=== PATIENT | female | born 1945 | race Caucasian/White ===

== ENCOUNTER 2023-06-13 11:09 | Emergency (ER) | payer MEDICARE, OTHER, MEDICAID, SELFPAY ==
[2023-06-13 12:06] VITALS: BP 182/92; PULSE 64; RESP 16; TEMP 36.9; O2SAT 97; BMI 27.1
--- NOTE | 2023-06-13 12:12 | DI.RAD.S_ITS ---
PROCEDURE: XR HAND RT MIN 3V INDICATIONS: Hyperextension of right fingers with swelling TECHNIQUE: 3 views of the hand acquired. COMPARISON: None. FINDINGS: Bones: Subtle small ossifications are seen volar to the the 3rd and 4th middle phalangeal bases. Carpal bones are normally aligned. No suspicious bony lesions. Background arthritic changes are present. Soft tissues: Chondrocalcinosis is noted in the region of the triangular fibrocartilage. Soft tissue edema is seen in the region of the 3rd and 4th proximal interphalangeal joints. IMPRESSION: Suspected small minimally displaced fractures at volar bases of the 3rd and 4th middle phalanges. Approved by: Dawood Nassar M.D. on 06/13/2023 at 14:09
--- NOTE | 2023-06-13 13:46 | PC.NURSE ---
Patient with significant swelling to left ring finger with yellow color metal ring with red colored stone at base of finger. With patient's permission after education on the safety and integrity of finger being compromised by swelling and restriction of ring, ring was cut off and given back to patient in specimen cup with patient label on it.
--- NOTE | 2023-06-13 13:51 | DI.RAD.S_ITS ---
PROCEDURE: XR HAND RT MIN 3V INDICATIONS: injury TECHNIQUE: 3 views of the hand(s) acquired. COMPARISON: [facility], CR, XR HAND RT MIN 3V, 06/13/2023, 12:26. FINDINGS: Bones: No fractures or dislocations. Carpal bones are normally aligned. No suspicious bony lesions. Soft tissues: No suspicious soft tissue calcifications. IMPRESSION: No acute fracture. No osseous lesion. If symptoms and/or clinical suspicion for pathology persist, further assessment with repeat, or advanced imaging (e.g., CT, MRI, or bone scan) may be helpful for further assessment. Dictated by: Lamin Bowles M.D. on 06/13/2023 at 14:22 Approved by: Lamin Bowles M.D. on 06/13/2023 at 14:23
[2023-06-13 13:52] VITALS: BP 170/78; PULSE 65; RESP 18; O2SAT 98
[2023-06-13 15:05] VITALS: BP 173/81; PULSE 69; RESP 16; O2SAT 98
--- NOTE | 2023-06-20 11:15 | ED_ITS ---
HPI - Extremity Injury (Upper) <Rohit Werner PA-C - Last Filed: 06/20/23 11:20> General Chief Complaint: Extremity Injury, Upper Stated Complaint: right hand injury, swelling Time Seen by Provider: 06/13/23 12:25 Source: patient Mode of arrival: Ambulatory History of Present Illness HPI narrative: 77-year-old female with past medical history Parkinson's presents to the ED status post a finger injury sustained yesterday. Patient reports accidentally hyperextending her right ring and middle finger yesterday, following which there has been some significant swelling and pain of both fingers. Patient denies numbness, tingling, weakness. Related Data Allergies Allergy/AdvReac Type Severity Reaction Status Date / Time ciprofloxacin [From Cipro] Allergy Verified 06/13/23 12:11 Sulfa (Sulfonamide Allergy Verified 06/13/23 12:11 Antibiotics) Review of Systems <Rohit Werner PA-C - Last Filed: 06/20/23 11:20> Constitutional Constitutional: Denies chills, Denies fatigue, Denies fever(s), Denies frequent falls, Denies lethargy and Denies weakness Eyes Eyes: Denies change in vision, Denies eye discharge, Denies irritation and Denies loss of vision ENT Ears, Nose, Mouth, and Throat: Denies change in voice, Denies dizziness, Denies neck pain, Denies sore throat and Denies throat swelling Cardiovascular Cardiovascular: Denies chest pain, Denies irregular heart rhythm, Denies lightheadedness, Denies palpitations, Denies dyspnea, Denies dyspnea on exertion and Denies orthopnea Respiratory Respiratory: Denies cough, Denies dyspnea, Denies dyspnea on exertion and Denies wheezing Gastrointestinal Gastrointestinal: Denies abdominal pain, Denies change in bowel habits, Denies diarrhea, Denies nausea and Denies vomiting Musculoskeletal Musculoskeletal: Denies neck pain and Denies numbness Comments: Right ring and middle finger injury, swelling, pain Integumentary/Breasts Skin/Breast: Denies pruritus, Denies erythema, Denies rash and Denies wounds Neurologic Neurologic: Denies behavioral changes, Denies confusion, Denies dizziness, Denies frequent falls, Denies loss of vision, Denies numbness and Denies weakness Psychiatric Psychiatric: Denies anxiety, Denies behavioral changes, Denies confusion, Denies depression, Denies homicidal ideation and Denies suicidal ideation Endocrine Endocrine: Denies fatigue, Denies flushing and Denies palpitations Hematologic/Lymphatic Hematologic/Lymphatic: Denies easy bruising Allergic/Immunologic Allergic/Immunologic: Denies urticaria, Denies throat swelling and Denies wheezing Patient History <Rohit Werner PA-C - Last Filed: 06/20/23 11:20> Social History Smoking Status: Former smoker Smoking Status: Former smoker Substance Use Type: does not use Exam <Rohit Werner PA-C - Last Filed: 06/20/23 11:20> Narrative Exam Narrative: Const General:?cooperative, healthy appearing and comfortable HENMT Head:?normal to inspection Ears:?hearing grossly normal bilaterally Nose:?external nose normal Face and sinus:?normal facial exam and sinuses nontender Mouth:?oral mucosae normal Throat:?posterior oropharynx normal Eyes General:?appearance normal, both eyes and all related structures Neck Neck:?normal visual inspection and no lymphadenopathy noted Resp Effort & Inspection:?normal respiratory effort Auscultation:?clear to auscultation bilaterally Cardio Rate:?regular rate Rhythm:?regular rhythm Musculoskeletal Right ring finger and middle finger appears swollen and painful. The ring was cut to accommodate swelling and avoid neurovascular compromise. No bruising. Sensation intact. Range of motion limited by pain. Neuro General:?patient alert, patient awake and patient oriented x3 Initial Vital Signs Initial Vital Signs: Vital Signs Temperature 98.4 F 06/13/23 12:06 Pulse Rate 64 06/13/23 12:06 Respiratory Rate 16 06/13/23 12:06 Blood Pressure 182/92 H 06/13/23 12:06 Pulse Oximetry 97 06/13/23 12:06 Oxygen Delivery Method Room Air 06/13/23 12:06 <Elinor Lanza DO - Last Filed: 06/21/23 07:08> Initial Vital Signs Initial Vital Signs: Vital Signs Temperature 98.4 F 06/13/23 12:06 Pulse Rate 64 06/13/23 12:06 Respiratory Rate 16 06/13/23 12:06 Blood Pressure 182/92 H 06/13/23 12:06 Pulse Oximetry 97 06/13/23 12:06 Oxygen Delivery Method Room Air 06/13/23 12:06 MDM - Extremity Injury (Upper) <Rohit Werner PA-C - Last Filed: 06/20/23 11:20> [facility] Narrative Medical decision making narrative: 77-year-old female with past medical history Parkinson's presents to the ED status post a finger injury sustained yesterday. Concern for fracture/dislocation versus musculoskeletal sprain/strain versus other. X-ray was obtained after the ring was removed which showed no acute fractures or dislocations. Patient's symptoms most consistent with a musculoskeletal sprain/strain of the fingers. Recommend supportive care with Tylenol. ED return precautions discussed with patient. Patient verbalized understanding. Medical records reviewed: Yes Discharge Plan Departure Patient Disposition: Home Clinical Impression: Finger sprain Qualifiers: Encounter type: initial encounter Finger: ring finger Sprain of finger site: unspecified site Laterality: right Qualified Code(s): S63.614A - Unspecified sprain of right ring finger, initial encounter Instructions: DI for Finger Sprain Activity Restrictions/Additional Instructions: You were evaluated in the ED today for a finger injury. Your x-ray did not show any fractures or dislocations. It appears that your injury is from a musculoskeletal sprain/strain of the fingers. You may take Tylenol for pain. Please follow-up with your PCP as soon as possible. Return to the ED if you have worsening symptoms, numbness, tingling, weakness. Stand Alone Forms: Patient Portal/API ED Sign-out <Elinor Lanza DO - Last Filed: 06/21/23 07:08> Cosign ED Attending Rishabh Attestation: I was immediately available in the department for consultation.
== END 2023-06-13 15:05 | disposition home or self-care (01) ==
PROVIDERS: Emergency Provider Student in an Organized Health Care Education/Training Program
DX: S63.614A Unspecified sprain of right ring finger, initial encounter (principal); X58.XXXA Exposure to other specified factors, initial encounter
CPT/HCPCS: 73130; 99283

== ENCOUNTER → 2023-10-29 10:07 | Outpatient (CLI) | payer MEDICARE, OTHER, MEDICAID, SELFPAY ==
[2023-10-29 15:26] LABS: Appearance Urine UA CLEAR; Bilirubin Urine UA NEGATIVE (NEGATIVE); Color Urine UA YELLOW; Glucose Urine UA NEGATIVE (Negative); Ketones Urine UA NEGATIVE (NEGATIVE); Leukocyte Esterase Urine UA NEGATIVE (NEGATIVE); Nitrite Urine UA NEGATIVE (Negative); Occult Blood Urine UA NEGATIVE (Negative); Protein Urine UA NEGATIVE (Negative); Urobilinogen Urine UA 0.2 E.U./dL (0.2)
[2023-10-29 15:30] LABS: RBC Urine 0-1/HPF (0-5/HPF); Urine Volume 10mL (spun); WBC Urine 5-10/HPF (0-5/HPF)
[2023-10-29 15:31] LABS: Bacteria Urine Moderate (10-30); Culture Indicated Urine Specimen Cultured; Squamous Epithelial Cell Urine 5-10 /HPF (0-5/HPF)
== END ==
PROVIDERS: Referring Provider Internal Medicine; Visit Provider Internal Medicine
DX: R39.15 Urgency of urination (principal)
CPT/HCPCS: 81001; 87086

== ENCOUNTER → 2024-01-27 14:43 | Outpatient (ROUT) | payer MEDICARE, OTHER, MEDICAID, SELFPAY ==
[2024-01-27 14:52] LABS: Appearance Urine UA CLEAR; Bilirubin Urine UA NEGATIVE (NEGATIVE); Color Urine UA YELLOW; Glucose Urine UA NEGATIVE (Negative); Ketones Urine UA TRACE (NEGATIVE); Leukocyte Esterase Urine UA NEGATIVE (NEGATIVE); Nitrite Urine UA NEGATIVE (Negative); Occult Blood Urine UA NEGATIVE (Negative); Protein Urine UA NEGATIVE (Negative); Specific Gravity Urine UA 1.025 (1.000-1.035); Urobilinogen Urine UA 0.2 E.U./dL (0.2)
[2024-01-27 14:59] LABS: Bacteria Urine Many (>30); Culture Indicated Urine Cult Not Indicated; RBC Urine 0-1/HPF (0-5/HPF); Squamous Epithelial Cell Urine 10-30 /HPF (0-5/HPF); Urine Volume 10mL (spun); WBC Urine 1-5/HPF (0-5/HPF)
== END ==
PROVIDERS: Visit Provider Nurse Practitioner Family
DX: R35.0 Frequency of micturition (principal)
CPT/HCPCS: 81001

== ENCOUNTER → 2024-02-01 06:22 | Outpatient (ROUT) | payer MEDICARE, OTHER, MEDICAID, SELFPAY ==
[2024-02-01 08:03] LABS: Add Manual Diff / Slide Review NO; Basophils Absolute Auto 0 /uL (0-100); Basophils Percent Auto 0.6 % (0-2); Eosinophils Absolute Auto 200 /uL (0-450); Eosinophils Percent Auto 2.7 % (2-4); Hematocrit 38.4 % (36-46); Hemoglobin 13.1 g/dL (12.0-16.0); Lymphocytes Absolute Auto 1200 /uL (1100-4500); Lymphocytes Percent Auto 20.6 % (25-40); Mean Corpuscular Hemoglobin 30.3 PG (26-34); Mean Corpuscular Volume 89.1 fL (80-100); Monocytes Absolute Auto 500 /uL (0-900); Neutrophils Absolute Auto 3800 /uL (1500-7000); Neutrophils Percent Auto 67.1 % (50-75); Platelet Count 218 X10^3/uL (150-400); Red Blood Cell Count 4.31 X10^6/uL (4.0-5.2); Red Cell Distribution Width 13.8 % (11.6-14.8); White Blood Cell Count 5.6 X10^3/uL (4.5-11.0)
[2024-02-01 08:22] LABS: Albumin 3.7 g/dL (3.5-5.0); Albumin Globulin Ratio 1.3 (1.0-2.8); Alkaline Phosphatase 89 U/L (38-126); Aspartate Aminotransferase 19 IU/L (14-36); BUN Creatinine Ratio 28.3 (6-22); Bilirubin Total 0.8 mg/dL (0.2-1.3); Blood Urea Nitrogen 36 mg/dL (7-17); Calcium 9.3 mg/dL (8.4-10.2); Carbon Dioxide 24 mmol/L (22-32); Chloride 106 mmol/L (98-107); Estimated Glomerular Filt Rate 44 mL/min (>60); Globulin 2.8 g/dL (1.7-4.1); Glucose 93 mg/dL (80-110); HEMOLYSIS < 15 (0-50); Sodium 136 mmol/L (137-145); Total Protein 6.5 g/dL (6.3-8.2)
[2024-02-01 08:23] LABS: Alanine Aminotransferase < 4 IU/L (<35)
== END ==
PROVIDERS: Visit Provider Nurse Practitioner Family
DX: N18.4 Chronic kidney disease, stage 4 (severe) (principal); R29.6 Repeated falls; G20.B2 Parkinson's disease with dyskinesia, with fluctuations
CPT/HCPCS: 36415; 80053; 85025

== ENCOUNTER → 2024-05-03 06:08 | Outpatient (ROUT) | payer MEDICARE, OTHER, MEDICAID, SELFPAY ==
[2024-05-03 07:22] LABS: BUN Creatinine Ratio 18.1 (6-22); Blood Urea Nitrogen 28 mg/dL (7-17); Calcium 9.5 mg/dL (8.4-10.2); Carbon Dioxide 26 mmol/L (22-32); Chloride 106 mmol/L (98-107); Estimated Glomerular Filt Rate 34 mL/min (>60); Glucose 95 mg/dL (80-110); HEMOLYSIS < 15 (0-50); Sodium 138 mmol/L (137-145)
== END ==
PROVIDERS: Visit Provider Nurse Practitioner Family
DX: N18.9 Chronic kidney disease, unspecified (principal)
CPT/HCPCS: 36415; 80048

== ENCOUNTER 2025-01-31 18:30 | Inpatient (IN) | payer MEDICARE, OTHER, MEDICAID, SELFPAY ==
[2024-12-29 14:37] VITALS: BMI 29.7
--- NOTE | 2025-01-31 | DI.CT.S_ITS ---
PROCEDURE: CT PEL WO CON INDICATIONS: Right hip fracture TECHNIQUE: Noncontrast 3 mm axial sections acquired through the bony pelvis, with coronal and sagittal reformatting. COMPARISON: [facility], CR, XR PELVIS WITH LATERAL HIP LEFT, 04/05/2023, 13:31. [facility], CR, XR HIP W PEL RT 2V, 01/31/2025, 19:07. FINDINGS: Image quality: Excellent. Bones: Prior pinning of the left hip. Cortical step-off at the right femoral neck. Associated sclerosis due to impaction. No significant displacement. No dislocation. No suspicious osseous lesion Soft tissues: No large hematoma. Diverticulosis. Normal appendix. No free fluid in the pelvis. IMPRESSION: 1. Nondisplaced right hip fracture. 2. No significant hematoma. 3. Prior left hip pinning. Dictated by: Jon Guy M.D. on 02/01/2025 at 0:21 Approved by: Jon Guy M.D. on 02/01/2025 at 0:25
[2025-01-31 18:48] VITALS: BP 165/74; PULSE 65; RESP 16; TEMP 36.9; O2SAT 95; BMI 27.4
--- NOTE | 2025-01-31 18:53 | DI.RAD.S_ITS ---
PROCEDURE: XR HIP W PEL IF DONE RT 2V INDICATIONS: fall/pain TECHNIQUE: AP pelvis with lateral view(s) of the right hip(s). COMPARISON: None. FINDINGS: Bones: Osteopenia. Subtle cortical irregularity and linear lucency through the subcapital proximal femur is suspicious for a nondisplaced fracture. The pelvic ring appears intact. The sacrum is obscured by bowel gas. Left proximal femoral fixation is noted. Mild degenerative changes of the bilateral hip joints and visualized lower lumbar spine. Soft tissues: The visualized bowel gas pattern is normal. No suspicious soft tissue calcifications. IMPRESSION: Subtle cortical irregularity and linear lucency through the subcapital proximal femur is suspicious for a nondisplaced fracture. Recommend further evaluation with cross-sectional imaging. Dictated by: Esau Camargo M.D. on 01/31/2025 at 19:56 Approved by: Esau Camargo M.D. on 01/31/2025 at 20:00
[2025-01-31 23:30] VITALS: BP 183/84; PULSE 77; RESP 16
--- NOTE | 2025-01-31 23:53 | ED_ITS ---
HPI - Fall General Chief Complaint: Fall Stated Complaint: fall, rt hip pain no thinners Time Seen by Provider: 01/31/25 22:27 Source: patient and other Mode of arrival: Wheelchair History of Present Illness HPI Narrative: 79-year-old female patient with a history of CVA, Parkinson's disease and hypertension who fell earlier today and injured her right hip. She has trouble bearing weight and causes pain in the right hip and groin area. No other injury. Related Data Home Medications ?Medication ?Instructions ?Recorded ?Confirmed amantadine HCl 137 mg 274 mg PO BEDTIME 12/29/24 1 capsule,extended release 24 hr (Gocovri) amlodipine 10 mg tablet 10 mg PO DAILY 12/29/2407/24 carbidopa 25 mg-levodopa 100 mg 0.5 tab PO 5XD 5 02/01/25 tablet carvedilol 12.5 mg tablet 12.5 mg PO BID 12/29/2407/24 Allergies Allergy/AdvReac Type Severity Reaction Status Date / Time ciprofloxacin (From Cipro) Allergy Verified 12/29/24 11:34 furosemide Allergy Verified 01/31/25 18:49 Sulfa (Sulfonamide Allergy Verified 12/29/24 11:34 Antibiotics) sulfadiazine Allergy Verified 01/31/25 18:49 Review of Systems Review of Systems ROS Unobtainable: All systems reviewed & are unremarkable except as noted in HPI and below Musculoskeletal Musculoskeletal: Reports as per HPI Patient History Medical History HTN (hypertension) Transient cerebral ischemia Parkinson's disease Surgical History S/P deep brain stimulator placement Social History household members: none housing: assisted living facility Smoking Status: Never smoker Smoking Status: Never smoker Exam Narrative Exam Narrative: General: Alert and conversant. Mild distress. Appears well nourished and well hydrated Craniofacial: No evidence of trauma. Nontender and no swelling. Eyes: PERRLA EOMI conjunctiva clear HEENT: Oropharynx clear with no swelling, exudate or asymmetry of the pharynx. Nares clear. No sinus tenderness Neck: No tenderness or adenopathy. No meningismus. No JVD Lungs: Clear to auscultation with good air movement. No wheezing, rales or rhonchi. No respiratory distress Cardiac: Regular rate and rhythm with no appreciable murmur or gallop Abdomen: Soft, nontender with no distention or masses. Normal bowel sounds. No rebound or guarding Musculoskeletal: Right hip tenderness to palpation and gentle range of motion. No deformity. Otherwise Exam of the extremities, axial spine and ribcage reveals no deformity, bony tenderness or swelling. Range of motion intact Neuro: Alert and conversant. Cranial nerves, motor, sensory and cerebellar all grossly intact. No focal deficit Skin: Warm and normal color. No rashes Psychological: Normal affect and interaction. No evidence of delusion or psychosis. Normal mood. Initial Vital Signs Initial Vital Signs: Vital Signs Temperature 98.4 F 01/31/25 18:48 Pulse Rate 65 01/31/25 18:48 Respiratory Rate 16 01/31/25 18:48 Blood Pressure 165/74 H 01/31/25 18:48 Pulse Oximetry 95 01/31/25 18:48 Oxygen Delivery Method Room Air 01/31/25 18:48 Course Course Course Narrative: 23:15 Patient had been out in the waiting room a long time on her 1st arrival and was taken back to the SNF or assisted living. We were able to have her come back for assessment. 23:45 I discussed the patient's care with Dr. Barnes, orthopedics who will consult on the patient for surgical repair of right proximal femur fracture. He would like the patient admitted to hospitalist. 00:30 I discussed the patient's care with Alex hospitalist, who agrees to admit her with ortho consulting. Orders Ordered: ED Orders 02/01/25 00:05 CBC Auto Diff [Complete Blood Count AUTO DIFF] Stat CMP [Comprehensive Metabolic Panel] Stat Discontinued Medications Carbidopa/Levodopa (Carbidopa-Levodopa 25/100 Tablet) 1 each PO NOW ONE Stop: 02/01/25 01:41 Last Admin: 02/01/25 01:47 Dose: 0.5 each Documented By: KATIE Ketorolac Tromethamine (Ketorolac 30 Mg/Ml Vial) 15 mg IV NOW ONE Stop: 02/01/25 00:17 Last Admin: 02/01/25 00:35 Dose: 15 mg Documented By: ROSIE Morphine Sulfate (Morphine 4 Mg/Ml Inj) 4 mg IV NOW ONE Stop: 02/01/25 00:17 Last Admin: 02/01/25 00:36 Dose: 4 mg Documented By: ROSIE Vital Signs Vital signs: Vital Signs - 8 hr 01/31/25 23:30 02/01/25 00:00 02/01/25 00:30 Pulse Rate 77 75 Respiratory Rate 16 18 Blood Pressure 183/84 H 184/85 H 191/84 H Pulse Oximetry 92 Oxygen Delivery Method Room Air MDM - Fall Lab Data Attestation: I reviewed the patient's lab results. 02/01/25 00:05 02/01/25 00:05 Labs: Lab Results 02/01/25 Range/Units 00:05 WBC 12.0 H (4.5-11.0) X10^3/uL RBC 4.45 (4.0-5.2) X10^6/uL Hgb 13.2 (12.0-16.0) g/dL Hct 39.3 (36-46) % MCV 88.2 (80-100) fL MCH 29.6 (26-34) PG MCHC 33.6 (30-36) % RDW 14.4 (11.6-14.8) % Plt Count 196 (150-400) X10^3/uL Neut % (Auto) 82.7 H (50-75) % Lymph % (Auto) 8.4 L (25-40) % Pershing % (Auto) 7.6 (3-14) % Eos % (Auto) 0.9 L (2-4) % Baso % (Auto) 0.4 (0-2) % Neut # (Auto) 9900 H (1676-4644) /uL Lymph # (Auto) 1000 L (2440-8824) /uL Pershing # (Auto) 900 (0-900) /uL Eos # (Auto) 100 (0-450) /uL Baso # (Auto) 100 (0-100) /uL Sodium 138 (137-145) mmol/L Potassium 3.9 (3.4-5.1) mmol/L Chloride 105 (98-107) mmol/L Carbon Dioxide 21 L (22-32) mmol/L BUN 35 H (7-17) mg/dL Creatinine 1.50 H (0.52-1.04) mg/dL Estimated GFR 35 L (>60) mL/min BUN/Creatinine Ratio 23.3 H (6-22) Glucose 113 H (70-99) mg/dL Calcium 9.6 (8.4-10.2) mg/dL Total Bilirubin 0.6 (0.2-1.3) mg/dL AST 29 (14-36) IU/L ALT 8 (<35) IU/L Alkaline Phosphatase 112 (38-126) U/L Total Protein 7.5 (6.3-8.2) g/dL Albumin 4.4 (3.5-5.0) g/dL Globulin 3.1 (1.7-4.1) g/dL Albumin/Globulin Ratio 1.4 (1.0-2.8) Imaging Data Right hip radiographs: Attestation: I personally reviewed and interpreted this imaging study as follows: My Impression: Possible nondisplaced right femoral neck fracture CT pelvis: Radiologist's Impression: IMPRESSION: 1. Nondisplaced right hip fracture. 2. No significant hematoma. 3. Prior left hip pinning. [facility] Narrative Medical decision making narrative: Patient had a fall with an isolated nondisplaced right femoral neck fracture which will need surgery. Patient's care was discussed with both orthopedics and hospitalist. Patient is admitted to hospitalist with ortho consultation for surgery in the morning. Otherwise stable on her chronic medical problems including Parkinson's Discharge Plan Departure Patient Disposition: Admitted As Inpatient Clinical Impression: Closed fracture of neck of right femur Admit Date/Time: 02/01/25 00:31 Admit Provider: Chad Eng
[2025-02-01] VITALS (38 sets, daily range): BP systolic 150–191; BP diastolic 65–121; PULSE 68–87; RESP 13–18; TEMP 35.9–36.9; O2SAT 15–98; BMI 28.2
--- NOTE | 2025-02-01 | DI.RAD.S_ITS ---
PROCEDURE: XR HIP W PEL IF DONE RT 2V INDICATIONS: RT HIP SURGERY TECHNIQUE: 2 intraoperative views of the hip were acquired. COMPARISON: [facility], CR, XR HIP W PEL RT 2V, 02/01/2025, 18:16. [facility], CR, XR HIP W PEL RT 2V, 01/31/2025, 19:07. FINDINGS: 3 screws transversing the right femoral neck fracture. Screws project in the expected location. IMPRESSION: Intraoperative guidance provided. Dictated by: Jon Guy M.D. on 02/01/2025 at 20:28 Approved by: Jon Guy M.D. on 02/01/2025 at 20:29
--- NOTE | 2025-02-01 | DI.RAD.S_ITS ---
PROCEDURE: XR HIP W PEL IF DONE RT 2V INDICATIONS: POST OP TECHNIQUE: AP pelvis with lateral view(s) of the right hip(s). COMPARISON: [facility], CR, XR HIP W PEL RT 2V, 02/01/2025, 17:53. [facility], CR, XR HIP W PEL RT 2V, 01/31/2025, 19:07. FINDINGS: Bones: Fixation screws in the bilateral femoral necks, more recently placed on the right. No evidence of hardware complication.. Pelvic ring appears intact. No suspicious bony lesions. Soft tissues: The visualized bowel gas pattern is normal. No suspicious soft tissue calcifications. IMPRESSION: Interval placement of right femoral neck fixation screws without evidence of hardware complication. Dictated by: Dayne Mark M.D. on 02/01/2025 at 19:39 Approved by: Dayne Mark M.D. on 02/01/2025 at 19:40
[2025-02-01] MEDS: KETOROLAC 30 MG/ML VIAL 15 MG IV (00:35)
[2025-02-01] MEDS: MORPHINE 4 MG/ML INJ IV (00:36)
[2025-02-01 00:39] LABS: Add Manual Diff / Slide Review NO; Hematocrit 39.3 % (36-46); Hemoglobin 13.2 g/dL (12.0-16.0); Lymphocytes Absolute Auto 1000 /uL (1100-4500); Mean Corpuscular HGB Conc 33.6 % (30-36); Mean Corpuscular Hemoglobin 29.6 PG (26-34); Mean Corpuscular Volume 88.2 fL (80-100); Platelet Count 196 X10^3/uL (150-400)
[2025-02-01 00:49] LABS: Alanine Aminotransferase 8 IU/L (<35); Albumin 4.4 g/dL (3.5-5.0); Albumin Globulin Ratio 1.4 (1.0-2.8); Alkaline Phosphatase 112 U/L (38-126); Blood Urea Nitrogen 35 mg/dL (7-17); Calcium 9.6 mg/dL (8.4-10.2); Carbon Dioxide 21 mmol/L (22-32); Chloride 105 mmol/L (98-107); Estimated Glomerular Filt Rate 35 mL/min (>60); Globulin 3.1 g/dL (1.7-4.1); Glucose 113 mg/dL (70-99); HEMOLYSIS 20 (0-50); Potassium 3.9 mmol/L (3.4-5.1); Sodium 138 mmol/L (137-145); Total Protein 7.5 g/dL (6.3-8.2)
[2025-02-01] MEDS: CARBIDOPA-LEVODOPA 25/100 TABLET 1 EACH PO (01:47)
--- NOTE | 2025-02-01 05:47 | PM.HP.1 ---
History of Present Illness History of Present Illness Date Patient Seen: 02/01/25 Time Patient Seen: 04:00 Chief complaint: fall, rt hip pain no thinners Narrative: 79 y/o resident of [facility] and PMH of Parkinson's disease with recurrent falls, presented with subcapital right femoral neck fracture. She was recently hospitalized in [place] for suspected stroke that turned out to be TIA. Today she did not sustain additional injuries with GLF. Complains on right hip pain. [facility] Medical History (Updated 02/01/25 @ 05:58 by Chad Johnson MD) HTN (hypertension) Transient cerebral ischemia Parkinson's disease Surgical History S/P deep brain stimulator placement Social History household members: none housing: assisted living facility Smoking Status: Never smoker Meds Home Medications and Allergies Home Medications ?Medication ?Instructions ?Recorded ?Confirmed ?Type amantadine HCl 137 mg 274 mg PO BEDTIME 12/29/24 02/01/25 History capsule,extended release 24 hr (Gocovri) amlodipine 10 mg tablet 10 mg PO DAILY 12/29/24 02/01/25 History carbidopa 25 mg-levodopa 100 mg 0.5 tab PO 5XD 12/29/24 02/01/25 History tablet carvedilol 12.5 mg tablet 12.5 mg PO BID 12/29/24 02/01/25 History Allergies Allergy/AdvReac Type Severity Reaction Status Date / Time ciprofloxacin (From Cipro) Allergy Verified 12/29/24 11:34 furosemide Allergy Verified 01/31/25 18:49 Sulfa (Sulfonamide Allergy Verified 12/29/24 11:34 Antibiotics) sulfadiazine Allergy Verified 01/31/25 18:49 Review of Systems Review of Systems Narrative: MSK - right groin pain CVS - w/o chest pain RS - w/o shortness of breath Neuro - loss of balance, unsteady gait Exam Vital Signs (past 8 hours): - 01/31/25 23:30 02/01/25 00:00 02/01/25 00:30 Pulse Rate 77 75 Respiratory Rate 16 18 Blood Pressure 183/84 H 184/85 H 191/84 H Pulse Oximetry 92 Oxygen Delivery Method Room Air 02/01/25 01:00 02/01/25 01:30 02/01/25 03:00 Pulse Rate 74 75 Respiratory Rate 17 16 Blood Pressure 165/70 H 150/67 H Pulse Oximetry 96 93 Oxygen Delivery Method Room Air Room Air Room Air Oxygen Delivery Method Room Air Narrative Exam Narrative: General - in no distress HEENT - atraumatic MSK - Rt groin and hip tender Neuro - bradykinetic, w/o tremor, has deep brain stimulator, Rt medial gaze palsy, dysarthria,normal mood and affect CVS - RRR RS - normal rtespiratory effort Objective Imaging CT Pelvis: Radiologist's impression: . Nondisplaced right hip fracture. 2. No significant hematoma. 3. Prior left hip pinning. Xray hip: Radiologist's impression: Subtle cortical irregularity and linear lucency through the subcapital proximal femur is suspicious for a nondisplaced fracture. Recommend further evaluation with cross-sectional imaging. Labs 02/01/25 00:05 02/01/25 00:05 Labs: Laboratory Results - last 24 hr 02/01/25 00:05 WBC 12.0 H RBC 4.45 Hgb 13.2 Hct 39.3 MCV 88.2 MCH 29.6 MCHC 33.6 RDW 14.4 Plt Count 196 Neut % (Auto) 82.7 H Lymph % (Auto) 8.4 L [place] % (Auto) 7.6 Eos % (Auto) 0.9 L Baso % (Auto) 0.4 Neut # (Auto) 9900 H Lymph # (Auto) 1000 L [place] # (Auto) 900 Eos # (Auto) 100 Baso # (Auto) 100 Sodium 138 Potassium 3.9 Chloride 105 Carbon Dioxide 21 L BUN 35 H Creatinine 1.50 H Estimated GFR 35 L BUN/Creatinine Ratio 23.3 H Glucose 113 H Calcium 9.6 Total Bilirubin 0.6 AST 29 ALT 8 Alkaline Phosphatase 112 Total Protein 7.5 Albumin 4.4 Globulin 3.1 Albumin/Globulin Ratio 1.4 Assessment & Plan Assessment and plan (1) Closed fracture of neck of right femur: Status: Acute (2) Parkinson's disease: Qualifiers: Dyskinesia presence: without dyskinesia Fluctuating manifestations: with fluctuating manifestations Qualified Code(s): G20.A2 - Parkinson's disease without dyskinesia, with fluctuations Status: Acute (3) Left bundle branch block (LBBB) determined by electrocardiography: Status: Acute (4) HTN (hypertension): Status: Acute Assessment & Plan narrative: Rt femoral neck fracture - NPO - IVFs - pain management - orthopedic surgery will operate Parkinson's disease - deep brain stimulator - Sinemet - amantadine - recurrent falls HTN - Coreg 12.5 mg bid - Norvasc 1o mg daily DVT prophylaxis - SCDs Patient consented to telemedicine, two-way, audio-visual encounter with RN assisting with exam. Patient located at [facility], provider located in [place]. Time-Based Coding :: [TOTAL MINUTES] spent with patient and on the chart (including review of chart, obtaining history, exam, reviewing outside data, placing orders, documenting exam and treatment plan, and counseling patient) on [DATE]. Quality VTE Deep Vein Thrombosis/Pulmonary Embolism Present on Admission: No
[2025-02-01] MEDS: LACTATED RINGERS 1,000 ML 100 ML IV ×2 (06:05→20:20)
[2025-02-01 06:19] LABS: MRSA (Nasal) PCR NOT DETECTED (Not Detect)
--- NOTE | 2025-02-01 06:44 | PC.ADMIT ---
[address] Admission Note: The patient,Nava Barroso,79 y/o, was given written information regarding hospital policies, unit procedures and contact persons. Patient's smoking status: Never smoker. Vital Signs - 8 hr 01/31/25 23:30 02/01/25 00:00 02/01/25 00:30 Temperature Pulse Rate 77 75 Respiratory Rate 16 18 Blood Pressure 183/84 H 184/85 H 191/84 H Pulse Oximetry 92 Oxygen Delivery Method Room Air Oxygen Flow Rate 02/01/25 01:00 02/01/25 01:30 02/01/25 02:10 Temperature 97.8 F Pulse Rate 74 75 69 Respiratory Rate 17 16 18 Blood Pressure 165/70 H 150/67 H 156/70 H Pulse Oximetry 96 93 92 Oxygen Delivery Method Room Air Room Air Oxygen Flow Rate 0 02/01/25 03:00 Temperature Pulse Rate Respiratory Rate Blood Pressure Pulse Oximetry Oxygen Delivery Method Room Air Oxygen Flow Rate Patient admitted to ICU room 229. A/O, but has impaired speech r/t previous CVA and Parkinsons. Has pain while turning and changing from street clothes to gown, denies pain once at rest. Decline Dunn catheter, but agreeable to Purewick. NPO, IVF started.
[2025-02-01 07:43] LABS: Hematocrit 39.5 % (36-46); Hemoglobin 13.2 g/dL (12.0-16.0); Mean Corpuscular HGB Conc 33.4 % (30-36); Mean Corpuscular Hemoglobin 29.6 PG (26-34); Mean Corpuscular Volume 88.6 fL (80-100); Platelet Count 172 X10^3/uL (150-400)
[2025-02-01 07:53] LABS: Blood Urea Nitrogen 32 mg/dL (7-17); Calcium 9.3 mg/dL (8.4-10.2); Carbon Dioxide 24 mmol/L (22-32); Chloride 103 mmol/L (98-107); Estimated Glomerular Filt Rate 37 mL/min (>60); Glucose 110 mg/dL (70-99); HEMOLYSIS < 15 (0-50); Potassium 4.1 mmol/L (3.4-5.1); Sodium 136 mmol/L (137-145)
--- NOTE | 2025-02-01 08:01 | PM.HP.1 ---
History of Present Illness History of Present Illness Date Patient Seen: 02/01/25 Chief complaint: fall, rt hip pain no thinners Narrative: Summary: 79 y/o resident of [facility] and H of Parkinson's disease with recurrent falls, presented with subcapital right femoral neck fracture. She was recently hospitalized in [place] for suspected stroke that turned out to be TIA. Today she did not sustain additional injuries with GLF. Complains on right hip pain. S: She was having a lot of right hip pain. She also feels stiff and feels like she was in withdrawal from her Sinemet. She denies any nausea. She was scheduled for operative repair today. O: VSS. Moderate distress, alert and oriented. Very surgeon difficult to understand speech. Masked facies. Lungs are clear, normal rate and effort. Heart is regular, no murmur gallop or rub. Abdomen is soft, non distended. Extremities are free of edema. Review of systems is difficult to obtain with her language intelligibility. IMAGING: CT Pelvis: Radiologist's impression: . Nondisplaced right hip fracture. 2. No significant hematoma. 3. Prior left hip pinning. Xray hip: Radiologist's impression: Subtle cortical irregularity and linear lucency through the subcapital proximal femur is suspicious for a nondisplaced fracture. Recommend further evaluation with cross-sectional imaging. A/P: 1. Right femoral neck fracture, active. 2. Parkinson's diisease, stable. 3. HTN, stable. PLAN: -IV fluids, NPO, pain medication. -ortho consultation for operative repair. -continue Sinemet as soon as possible. [facility] Medical History HTN (hypertension) Transient cerebral ischemia Parkinson's disease Surgical History S/P deep brain stimulator placement Social History household members: none housing: assisted living facility Smoking Status: Never smoker Meds Home Medications and Allergies Home Medications ?Medication ?Instructions ?Recorded ?Confirmed ?Type amantadine HCl 137 mg 274 mg PO BEDTIME 12/29/24 02/01/25 History capsule,extended release 24 hr (Gocovri) amlodipine 10 mg tablet 10 mg PO DAILY 12/29/24 02/01/25 History carbidopa 25 mg-levodopa 100 mg 0.5 tab PO 5XD 12/29/24 02/01/25 History tablet carvedilol 12.5 mg tablet 12.5 mg PO BID 12/29/24 02/01/25 History Allergies Allergy/AdvReac Type Severity Reaction Status Date / Time ciprofloxacin (From Cipro) Allergy Verified 12/29/24 11:34 furosemide Allergy Verified 01/31/25 18:49 Sulfa (Sulfonamide Allergy Verified 12/29/24 11:34 Antibiotics) sulfadiazine Allergy Verified 01/31/25 18:49 Exam Vital Signs (past 8 hours): - 02/01/25 00:30 02/01/25 01:00 02/01/25 01:30 Temperature Pulse Rate 75 74 75 Respiratory Rate 18 17 16 Blood Pressure 191/84 H 165/70 H 150/67 H Pulse Oximetry 92 96 93 Oxygen Delivery Method Room Air Room Air Room Air Oxygen Flow Rate 02/01/25 02:10 02/01/25 03:00 02/01/25 06:00 Temperature 97.8 F 96.7 F L Pulse Rate 69 68 Respiratory Rate 18 18 Blood Pressure 156/70 H 160/70 H Pulse Oximetry 92 98 Oxygen Delivery Method Room Air Oxygen Flow Rate 0 0 Oxygen Delivery Method Room Air Oxygen Flow Rate 0 Objective Labs 02/01/25 07:32 02/01/25 07:32 Labs: Laboratory Results - last 24 hr 02/01/25 02/01/25 02/01/25 00:05 03:10 07:32 WBC 12.0 H 7.3 RBC 4.45 4.46 Hgb 13.2 13.2 Hct 39.3 39.5 MCV 88.2 88.6 MCH 29.6 29.6 MCHC 33.6 33.4 RDW 14.4 14.4 Plt Count 196 172 Neut % (Auto) 82.7 H Lymph % (Auto) 8.4 L [place] % (Auto) 7.6 Eos % (Auto) 0.9 L Baso % (Auto) 0.4 Neut # (Auto) 9900 H Lymph # (Auto) 1000 L [place] # (Auto) 900 Eos # (Auto) 100 Baso # (Auto) 100 Sodium 138 136 L Potassium 3.9 4.1 Chloride 105 103 Carbon Dioxide 21 L 24 BUN 35 H 32 H Creatinine 1.50 H 1.46 H Estimated GFR 35 L 37 L BUN/Creatinine Ratio 23.3 H 21.9 Glucose 113 H 110 H Calcium 9.6 9.3 Total Bilirubin 0.6 AST 29 ALT 8 Alkaline Phosphatase 112 Total Protein 7.5 Albumin 4.4 Globulin 3.1 Albumin/Globulin Ratio 1.4 Nasal Screen MRSA (PCR) Not detected Assessment & Plan Time-Based Coding :: 35 min spent with patient and on the chart (including review of chart, obtaining history, exam, reviewing outside data, placing orders, documenting exam and treatment plan, and counseling patient) on 02/01. Quality VTE Deep Vein Thrombosis/Pulmonary Embolism Present on Admission: No MIPS - Admit I confirm the patient?s Advance Care Plan is present, Code status is documented, Surrogate decision maker is in patient?s record [If Yes, STOP here]: Yes MIPS - Meds 'Current medications' to include all prescriptions, [id number] products, herbals, cannabis/cannabidiol products, and vitamin/mineral/dietary (nutritional) supplements. I have utilized all available resources to obtain, update, or review the patient?s current medications. [If Yes, STOP here]: Yes
[2025-02-01] MEDS: CARBIDOPA-LEVODOPA 25/100 TABLET 0.5 EACH PO ×3 (12:10→21:30)
[2025-02-01] MEDS: ACETAMINOPHEN 325 MG TABLET 650 MG PO ×2 (13:02→21:32)
[2025-02-01] MEDS: LACTATED RINGERS 1,000 ML 42 ML IV ×2 (13:12→16:02)
--- NOTE | 2025-02-01 13:38 | CM.DANOTE ---
Initial DCP Assessment Note Pt is a 79 yo female, resident at [facility] in [place], hx of Parkinson's Disease with deep brain stiumulator, arrives after a fall at her facility with subsequent hip fracture, awaiting Ortho consult. Likely need for surgical repair. Reviewed chart, attempted assessment with patient; patient unable to verbalize effectively, slurred speech. Placed call to daughter on chart, Dorina P [phone] who reports she is sick, but her brother and patient's joint DPOA Spencer is coming from [place] today P [phone]. Dorina reports patient has been living at [facility] for approx 2 years. Patient is A+Ox4, had not been needing assist with all ADLs until recently when her deep brain stimulator had run out of battery life, , and sent patient into an almost catatonic state. Patient was sent to then transferred to [facility]; daughter reports she went to numerous hospitals before they found out patient's sx were all related to the stimulator shutting off due to low battery. Patient has a air brush decorator in her room that she lays on in order for the stimulator to charge correctly. Discussed anticipated surgery and likely need for SNF. Daughter would like a referral sent to [facility], patient had been there for months in the past after another surgical repair. Patient/family do not want [facility]. Placed call to [facility] P [phone], spoke with Lissette in admissions. Clinical referral faxed to [phone] attn Lissette. If this does not end up going through, pls email to : [email or web address]. PASRR completed in anticipation of SNF. Social work team will plan to follow clinical course closely. NATALIE Wu Discharge Planning/Care Management CM Discharge Assessment Start: 02/01/25 02:34 Freq: Status: Active Protocol: Document 02/01/25 13:35 FRANKIE (Rec: 02/01/25 13:38 FRANKIE [id number]) Discharge Planning Assessment Assigned Discharge NATALIE Gordon Weigher Bulker Provider Dante Francois Insurance Comment MCR/Ha/NILE DPOA/Assigned Dorina Simmons, daughter/DPOA P [phone] Designee Name Contact Information Spencer Barroso, son/joint DPOA P [phone] Advance Directives? Yes Advance Directives Yes on File History Provided By Family Member,Medical Record Has Patient been No admitted in last 30 days? Prior Living Assisted Living Arrangements Household Members none Facility Name [facility] Admitted From: Willing to Return to Yes Facility? Independent with ADL No 's Is patient alert and Yes oriented? Comment All ADLs currently
--- NOTE | 2025-02-01 16:38 | PM.CN.IH.1 ---
History of Present Illness Consult details Chief complaint: fall, rt hip pain no thinners Narrative: CHIEF COMPLAINT - Nondisplaced fracture of the right femoral neck HISTORY OF PRESENT ILLNESS Nava Barroso, a 79-year-old patient, presented with a nondisplaced fracture of the right femoral neck. The injury was sustained during a fall. The fracture is worsened by any movement and partially alleviated by rest. The pain has been present since the time of injury and does not radiate. Her son provided all of the history regarding her baseline status as she has difficulty speaking due to her Parkinsons. PERTINENT PAST MEDICAL HISTORY - Parkinson's disease with recurrent falls PERTINENT PAST SURGICAL HISTORY - Prior cannulated screw fixation of the left femoral neck after a similar injury last year. Location not recalled by the patient's son. SOCIAL HISTORY - Resides in an assisted living facility - Uses a walker for ambulation PHYSICAL EXAM - Constitutional: Patient is mentating appropriately, conversant, and not in acute distress. - Musculoskeletal: Examination of the right hip shows the hip in neutral rotation with intact plantar flexion, dorsiflexion, hallux, and ankle. No open wounds are present around the site of the hip fracture. ASSESSMENT 79-year-old female with a nondisplaced fracture of the right femoral neck. PLAN - The risks and benefits of surgery were discussed with the patient at length, and understanding their options, they wish to proceed with surgery. All of their questions were answered. - Planned surgery: Cannulated screw fixation of the right femoral neck fracture. - Timing of surgery: Today - Specific risks discussed include medical complications, need for additional surgery, damage to surrounding structures, infection. - Postoperative plan: Anticipate reduced weight-bearing on the right side initially, with the goal of returning to full weight-bearing status. The patient will return to a nursing facility for recovery and I recommend permanent use of a walker for ambulation. Meds Home Medications and Allergies Home Medications ?Medication ?Instructions ?Recorded ?Confirmed ?Type amantadine HCl 137 mg 274 mg PO BEDTIME 12/29/24 02/01/25 History capsule,extended release 24 hr (Gocovri) amlodipine 10 mg tablet 10 mg PO DAILY 12/29/24 02/01/25 History carbidopa 25 mg-levodopa 100 mg 0.5 tab PO 5XD 12/29/24 02/01/25 History tablet carvedilol 12.5 mg tablet 12.5 mg PO BID 12/29/24 02/01/25 History Allergies Allergy/AdvReac Type Severity Reaction Status Date / Time ciprofloxacin (From Cipro) Allergy Verified 02/01/25 15:54 furosemide Allergy Verified 02/01/25 15:54 Sulfa (Sulfonamide Allergy Verified 02/01/25 15:54 Antibiotics) sulfadiazine Allergy Verified 02/01/25 15:54 Exam Vital Signs (past 8 hours): - 02/01/25 11:14 02/01/25 15:00 02/01/25 15:51 Temperature 97.8 F 98.5 F Pulse Rate 79 72 Respiratory Rate 18 16 Blood Pressure 155/65 H 155/67 H 153/76 H Pulse Oximetry 91 93 Oxygen Delivery Method Room Air Oxygen Delivery Method Room Air Oxygen Flow Rate 0 Objective Labs 02/01/25 07:32 02/01/25 07:32 Labs: Laboratory Results - last 24 hr 02/01/25 02/01/25 02/01/25 00:05 03:10 07:32 WBC 12.0 H 7.3 RBC 4.45 4.46 Hgb 13.2 13.2 Hct 39.3 39.5 MCV 88.2 88.6 MCH 29.6 29.6 MCHC 33.6 33.4 RDW 14.4 14.4 Plt Count 196 172 Neut % (Auto) 82.7 H Lymph % (Auto) 8.4 L [place] % (Auto) 7.6 Eos % (Auto) 0.9 L Baso % (Auto) 0.4 Neut # (Auto) 9900 H Lymph # (Auto) 1000 L [place] # (Auto) 900 Eos # (Auto) 100 Baso # (Auto) 100 Sodium 138 136 L Potassium 3.9 4.1 Chloride 105 103 Carbon Dioxide 21 L 24 BUN 35 H 32 H Creatinine 1.50 H 1.46 H Estimated GFR 35 L 37 L BUN/Creatinine Ratio 23.3 H 21.9 Glucose 113 H 110 H POC Whole Bld Glucose Calcium 9.6 9.3 Total Bilirubin 0.6 AST 29 ALT 8 Alkaline Phosphatase 112 Total Protein 7.5 Albumin 4.4 Globulin 3.1 Albumin/Globulin Ratio 1.4 Nasal Screen MRSA (PCR) Not detected 02/01/25 12:35 WBC RBC Hgb Hct MCV MCH MCHC RDW Plt Count Neut % (Auto) Lymph % (Auto) [place] % (Auto) Eos % (Auto) Baso % (Auto) Neut # (Auto) Lymph # (Auto) [place] # (Auto) Eos # (Auto) Baso # (Auto) Sodium Potassium Chloride Carbon Dioxide BUN Creatinine Estimated GFR BUN/Creatinine Ratio Glucose POC Whole Bld Glucose 107 H Calcium Total Bilirubin AST ALT Alkaline Phosphatase Total Protein Albumin Globulin Albumin/Globulin Ratio Nasal Screen MRSA (PCR) [facility] Medical History HTN (hypertension) Transient cerebral ischemia Parkinson's disease Surgical History S/P deep brain stimulator placement Social History household members: none housing: assisted living facility Tobacco & Substance Use Smoking Status: Never smoker alcohol intake: never Assessment & Plan Time-Based Coding :: [TOTAL MINUTES] spent with patient and on the chart (including review of chart, obtaining history, exam, reviewing outside data, placing orders, documenting exam and treatment plan, and counseling patient) on [DATE]. PROFEE Charge Codes Inpatient or Observation consultation: [id number]
--- NOTE | 2025-02-01 17:30 | SUR.OPER ---
Supine on padded OR bed, head on pillow, right arm padded and secured on right side,left arm secured on padded arm board at <90 degrees abduction, legs uncrossed, tape over chest and abdomen, tape over blanket over lower legs, bump under right hip.
--- NOTE | 2025-02-01 18:25 | PM.OP.1 ---
Operative Date/Time/Diagnoses Date of procedure: 02/01/25 Time of procedure: 17:00 Pre-op diagnosis: Nondisplaced right femoral neck fracture Post-op diagnosis: same Procedure & Clinicians Procedure: Closed reduction and percutaneous pinning of right femoral neck Same procedure(s) as scheduled: Yes Surgeon: Jg Barnes Assisted?: No Anesthesia Type: General and Local Operative Notes Findings: Nondisplaced valgus impacted fracture Applied: implant(s) Estimated Blood Loss (mL): 25 Procedure in detail: This 79-year-old female patient had a ground level fall at facility. She has a history of Parkinson's and was recently hospitalized for worsening Parkinson's after her deep brain stimulator had shut off. She was brought into the emergency department where she was found to have a nondisplaced valgus impacted right femoral neck fracture. She actually had the same injury almost exactly a year ago and underwent the same surgery on the left side that I performed on the right side today. I discussed the surgery in detail with her son and her daughter both before and after the surgery. The biggest concern that I have is the possibility of rapidly declining functional status. The context of her recent hospital admission for worsening Parkinson's disease a hip fracture, which already represents a high risk of functional decline, is a major concomitant issue. We also discussed the risk of damage to surrounding structures, bleeding, failure of the bone to heal which is known as nonunion, need for further surgery, and . They understood these risks and wished to proceed. The patient was involved in these discussions as well and I answered questions from all 3 of them. The operative site was marked and informed consent was signed. The patient was brought back to the operating room and general anesthesia was induced. She was transferred onto a flat top OR table. She was prepped and draped in the usual sterile fashion. A time-out procedure formed. The operative hip was bumped. Imaging displaying the injury was displayed throughout the case. I began by obtaining AP and lateral radiographs of the fracture. It was a completely nondisplaced fracture with a pure valgus impaction pattern. I began by getting a cannulated wire in place for the posterior inferior screw for an eventual 7 0 cannulated screw. I initially mapped the trajectory before putting in the wire through the skin and obtaining a start point. Estimated an appropriate start point and then passed it through the fracture up into the femoral head. I attempted to skirt the calcar bone posterior medially. After verifying appropriate positioning fluoroscopically in both AP and lateral planes I then used a Yusuf gun device to obtain trajectories for the 2 more superior screws. I verified these positions both fluoroscopically. I evaluated it by going live with fluoro and Panning through the femoral neck. Initially all of them had appeared to have good conversion spread but on further evaluation I found that the most superior of the screws which was also located more anteriorly came in-out-in in the area where the impaction had occurred in the femoral neck. I redirected that wire to keep it within bone throughout its entire trajectory. Because of the location of the femoral neck fracture I utilized short threaded screws. I measured them and placed them. Initially I placed a 90 mm screws both superior anteriorly and superior posteriorly and a 100 mm screw inferior posteriorly. On further inspection I found that the 100 mm screw appeared to just slightly exit the fovea so downsized that to a 95 mm screw. Inspected the screw position by going live with fluoroscopy to ensure that they remained inside the femoral head and also that there was an appropriate spread on the AP and lateral radiographs. Once satisfied with these I concluded the case by copiously irrigating the wound and closing the wound with Stratafix suture and gwendolyn. Complications: none Post-operative Plan for aftercare: -weightbearing as tolerated -patient should use a walker for the rest of her life -will return to a care facility postoperatively with the details of the a to be determined pending her physical therapy evaluation and social work's assessment of her baseline care facility to meet her medical needs -I have discussed with multiple family members the strong possibility of a rapid functional decline from this injury and the possibility the patient does not make a significant functional recovery and eventually passes away over the next few months. The combination of worsening Parkinson's disease and a hip fracture does not portend a good prognosis in this underscores the importance of doing everything we can to get her back on her feet and ambulating -gwendolyn can be removed in 2 weeks as the patient will be at a care facility at that time. Follow up at [facility] in 6 weeks
--- NOTE | 2025-02-01 19:01 | PC.NURSE ---
Pt back up from OR. R Hip/Femur repaired, dressing CDI. Pulses present. Vital intact, 3L NC on for O2 support. Son at bedside. [facility] is bringing patients neuro stimulator for her Parkinsons. Bed alarm on. Purwick in place.
[2025-02-01] MEDS: AMANTADINE HCL 137 MG 274 EACH PO (20:13)
[2025-02-02 00:30] VITALS: BP 154/72; PULSE 74; RESP 18; TEMP 36.8; O2SAT 94
[2025-02-02] MEDS: LACTATED RINGERS 1,000 ML 100 ML IV (05:46)
[2025-02-02] MEDS: CARBIDOPA-LEVODOPA 25/100 TABLET 0.5 EACH PO ×5 (05:48→21:22)
[2025-02-02 08:00] VITALS: BP 160/84; PULSE 77; RESP 16; TEMP 36.7; O2SAT 95
--- NOTE | 2025-02-02 09:00 | PM.PNPO.1 ---
Subjective Subjective Interval history: PATIENT SUMMARY Nava Barroso is here for postoperative evaluation following a closed reduction percutaneous pinning of her right femoral neck performed yesterday. PAST SURGICAL HISTORY - Closed reduction percutaneous pinning of right femoral neck by me yesterday. SUBJECTIVE Nava reports she is doing good and denies having any pain. She has not stood up since the surgery. She is aware of her surroundings and responds appropriately, although she has altered mentation due to her Parkinson's disease. She was eating breakfast when I arrived with no supplemental oxygen. PHYSICAL EXAM Constitutional: - Mentating at baseline, altered due to Parkinson's disease. Musculoskeletal: - Dressingless clean dry and intact. ROM exam deferred - Able to flex and extend hallux and ankle. ASSESSMENT - Postoperative status following right femoral neck pinning. - Altered mentation secondary to Parkinson's disease. PLAN - Initiate physical therapy today to evaluate progress with walking. - Encourage standing and walking as tolerated. - Have discussed her poor prognostic factors with the family (Parkinsons + hip fracture) in the context of her having a high mortality risk over the next few months - Will eventually return to a facility, will need evaluation of her current care facility to determine whether or not they have the capacity to meet her medical needs DISPOSITION TBD Exam Vital Signs (past 8 hours): - 02/02/25 08:00 Temperature 98.1 F Pulse Rate 77 Respiratory Rate 16 Blood Pressure 160/84 H Pulse Oximetry 95 Oxygen Flow Rate 2 Oxygen Delivery Method Nasal Cannula Oxygen Flow Rate 2 Objective Labs 02/01/25 07:32 02/01/25 07:32 Labs: Laboratory Results - last 24 hr 02/01/25 12:35 POC Whole Bld Glucose 107 H PFSH Medical History HTN (hypertension) Transient cerebral ischemia Parkinson's disease Surgical History S/P deep brain stimulator placement Social History household members: none housing: assisted living facility Smoking Status: Never smoker alcohol intake: never Assessment & Plan Post-op Postoperative Procedures: Procedures Operation Date: 02/01/25 17:15 Actual Procedure Side Surgeon p ORIF Hip/Cannulated Screws x3 Right Jg Barnes MD Quality VTE Deep Vein Thrombosis/Pulmonary Embolism Present on Admission: No
[2025-02-02 09:04] VITALS: BP 160/74; PULSE 77
[2025-02-02] MEDS: ACETAMINOPHEN 325 MG TABLET 650 MG PO ×3 (09:05→21:22)
[2025-02-02 12:00] VITALS: BP 156/75; PULSE 71; RESP 16; TEMP 36.6; O2SAT 91
--- NOTE | 2025-02-02 13:49 | PC.NURSE ---
OOB 2PA/FWW stand/pivot to commode and back to bed, pt tolerated well though some unsteadiness.
--- NOTE | 2025-02-02 15:17 | PT.IIE ---
Current Diagnoses Parkinson's disease without dyskinesia, with fluctuations (02/01/25) Essential (primary) hypertension (02/01/25) Left bundle-branch block, unspecified (02/01/25) Fracture of unspecified part of neck of right femur, initial encounter for closed fracture (02/01/25) Surgery Performed Operation Date: 02/01/25 17:15 Actual Procedures p ORIF Hip/Cannulated Screws x3(Right) - Jg Barnes MD Surgical History (Last Reviewed 02/01/25 @ 11:41 by Ravi Webster MD) S/P deep brain stimulator placement Medical History (Last Reviewed 02/01/25 @ 11:41 by Ravi Webster MD) HTN (hypertension) Parkinson's disease Transient cerebral ischemia Physical Therapy Inpatient Evaluation/Re-Eval M1 PT/OT-IP Prior Functional Status Start: 02/02/25 18:36 Freq: NEEDED Status: Active Protocol: Document 02/02/25 15:17 AB (Rec: 02/02/25 18:54 AB Desktop) Medical Review Prior Functional Status Medical History Yes Reviewed Communication able to make needs known but with slow soft speech Mobility and Gait pt stated that she was modified independent with transfers and ambulation using a 4WW and staff assists her as needed; pt stated that staff assists her with getting into the bed but she is able to do supine to sit independently Social History Household Members caregiver Living Arrangements Assisted Living Number of Floors ( One Floor Floors) Number of Stairs To pt lives at [facility] and stated that staff assists Enter/Railing? her as needed Home Environment Standard Height Toilet,Walk in Shower Home Equipment Four Wheel Walker,Shower Seat with Backrest,Hand Held Shower,Grab Bars Near Toilet,Grab Bars In Shower Additional Social pt has an adjustable bed History Comment M2 PT-IP Current Condition Start: 02/02/25 18:36 Freq: NEEDED Status: Active Protocol: Document 02/02/25 15:17 AB (Rec: 02/02/25 18:54 AB Desktop) Physical Therapy Current Condition Current Condition Evaluation Date 02/02/25 Treatment Diagnosis R hip fx s/p ORIF; difficulty in walking Onset Date 02/01/25 M3 PT-IP Subjective Start: 02/02/25 18:36 Freq: NEEDED Status: Active Protocol: Document 02/02/25 15:17 AB (Rec: 02/02/25 18:54 AB Desktop) Subjective Physical Therapy Visit Type Type Initial Evaluation Visit Start Time 15:17 Visit Stop Time 15:55 Number of EPIC CADENCE ANALYST Visits 0 Physical Therapy Visit Comments Patient Comments agreeable to do PT Therapy Pain Assessment Pain Present Pain Present Denied Pain M4 PT-IP Mobility and Gait Start: 02/02/25 18:36 Freq: NEEDED Status: Active Protocol: Document 02/02/25 15:17 AB (Rec: 02/02/25 18:54 AB Desktop) PT-Transfer Assessment Sit to and From Stand Sit to and from Moderate Assistance,Maximum Assistance,1 Person Stand Assistance Equipment Transfer Assistive Gait Belt,Front Wheeled Walker Device Orthotic/Prosthetic No Devices or Brace: Comments Mobility Comments pt sitting on chair and nurse/NAC in room. pt just transferred bed to chair with nursing staff. pt agreed to do PT but does not want to do bed mobility assessment. obtained PLOF and home set up. sit to stand mod to max a and max cues. initial posterior LOB requiring mod to max A for repositioning. cued for steadiness and use of FWW for support. pt ambulated in room using FWW ~ 20 ft max A and max cues. (+) R knee buckling requiring assist for steadiness and cues for quads activation. pt sat back on chair. positioned pt on the chair. call light and table placed next to pt. pt wants to go back to [facility]. informed pt regarding SNF rehab and pt refusing. educated pt on SNF vs [facility]. Informed pt that recommendation at this time is SNF but it is pt's choice of what she wants as long as [facility] will be able to provided the necessary care /assistance that she needs and she will also need HHPT. pt understood. Gait Assessment Gait Gait Assistance Maximum Assistance,1 Person Assist Required: Distance (Feet) 20 Able to Maintain Yes Weight Bearing Status During Gait Assistive Devices Assistive Device Gait Belt,Front Wheeled Walker Orthotic/Prosthetic No Devices or Brace: Gait Deviations General Gait Pattern Antalgic,Decreased Stride Length,Decreased Feet Clearance,Step-to Gait Factors Limiting Gait Function Factors Limiting Decreased Activity Tolerance,Decreased Strength, Gait Function Difficulty Following Directions,Incoordination,Limited Range of Motion,Poor Balance,Poor Safety Awareness PT-Balance Assessment Sitting Balance and Reactions Static Sitting Good Balance Ability Dynamic Sitting Fair Balance Ability Standing Balance and Reactions Static Standing Poor Balance Ability Dynamic Standing Poor Balance Ability Device Used FWW M5 PT-IP Objective Assessments Start: 02/02/25 18:36 Freq: NEEDED Status: Active Protocol: Document 02/02/25 15:17 AB (Rec: 02/02/25 18:54 AB Desktop) Orientation Orientation/Cognition Level of Alertness Alert Orientation Name,Place,Situation Safety Awareness Decreased Safety Awareness Memory Description Short Term Impaired Comments slow and soft unclear speech : pt with PD Gross Range of Motion Lower Extremity ROM Assessment Within Functional Limits Strength Lower Extremity Strength Assessment Right Impaired Knee 3+/5 M6 PT-IP Treatment Start: 02/02/25 18:36 Freq: NEEDED Status: Active Protocol: Document 02/02/25 15:17 AB (Rec: 02/02/25 18:54 AB Desktop) Physical Therapy Treatment Education Education Provided Precautions,Weight Bearing Status,Post-Op Packet,Safety M7 PT-IP Assessment and Plan Start: 02/02/25 18:36 Freq: NEEDED Status: Active Protocol: Document 02/02/25 15:17 AB (Rec: 02/02/25 18:54 AB Desktop) PT Summary Assessment and Plan Potential Rehabilitation Fair Potential Status of Condition Evolving at Evaluation Summary Impairments Pain,ROM,Strength,Balance,Coordination,Sensation,Tone, Cognition,Bed Mobility,Transfers,Gait,Activity Tolerance Assessment Summary pt is a 79 y/o F who had a fall and sustain a R hip fx. pt underwent R hip ORIF POD 1 and is WBAT. pt requiring mod to max A for sit to stand and max A for ambulation using FWW with (+) R knee buckling. Pt also has h/o CVA and Parkinson's disease contributing to current level of assistance. pt is a high fall risk. Pt will benefit from SNF rehab but pt wants to just go back to [facility]. pt will require 24/7 assist if she goes back to [facility]. Goals Bed Mobility Goal Minimal Assistance Transfer Goal Minimal Assistance,Front Wheeled Walker Gait Goal Minimal Assistance,Front Wheel Walker Gait Distance 50 Other Goals improve bed mobility, transfers, ambulation using FWW 100 ft SBA Days to Meet Goals 10 Frequency of Treatment Frequency Of Once a Day Treatment Treatment Plan Physical Therapy Bed Mobility Training,Transfer Training,Gait Training, Treatment Plan Therapeutic Exercise,Balance Retraining,Post Op Education,Discharge Planning,Hot or Cold Pack, Neuromuscular Re-ed,Coordination Retraining,Manual Therapy Weight Bearing Status Weight Bearing Weight Bear as Tolerated Status Allowed Weight RLE WBAT Bearing Amount ( enter % or #) (%) Recommendations To Nursing Amount of Assist 2 Person Assist Needed Discharge Recommendations PT Discharge Home with 22/11 Assist Available,Home Health,SNF Rehab, Recommendations Home vs SNF Equipment Needed for FWW Home Before Discharge Transportation Needs Wheelchair/Cabulance at Discharge - PT assist 1
--- NOTE | 2025-02-02 16:18 | PM.PN.1 ---
Subjective Subjective Date Patient Seen: 02/02/25 Interval history: Chief complaint: Right hip pain secondary to subcapital hip fracture with fall ground level in a patient with advanced Parkinson's disease History of present illness: 02/01: 79 y/o resident of [facility] and [facility] of Parkinson's disease with recurrent falls, presented with subcapital right femoral neck fracture. She was recently hospitalized in [place] for suspected stroke that turned out to be TIA. Today she did not sustain additional injuries with GLF. Complains on right hip pain. Patient taken to the operating room by Orthopedic surgery: Hospital course: 02/02: Pain control is satisfactory postoperative no complaints postoperative no signs of complications no complaints or shortness for breath fever or chills Review of systems: No fever or chills No chest pain shortness for breath palpitations No nausea vomiting diarrhea No paresthesia paresis Physical exam: Elderly female very sleepy but responsive to questions with appropriate facial gestures HEENT unremarkable Heart rate and rhythm Lungs clear Abdomen benign Extremities no edema Good capillary refill in toes Neurologic nonfocal Assessment and plan: Closed subcapital fracture of left femur status post minimally invasive fixation without any signs of postoperative complications Uneventful postoperative course DVT prophylaxis per stewardship of Orthopedic surgery Parkinson's disease with dyskinesia status post deep brain stimulator History of deep brain stimulator Continue Sinemet Continue amantadine Close supervision for prevention of further falls DVT prophylaxis: Per orthopedic stewardship Code status: Full code blue Disposition: Inpatient presently At time of discharge return to correction 35 minutes were involved in evaluation of this patient including [id number] evaluation of the patient physical examination review of records review of objective laboratory findings and discussion with care management and treatment team Exam Vital Signs (past 8 hours): - 02/02/25 09:04 02/02/25 12:00 Temperature 97.9 F Pulse Rate 77 71 Respiratory Rate 16 Blood Pressure 160/74 H 156/75 H Pulse Oximetry 91 Oxygen Flow Rate 0 Oxygen Delivery Method Nasal Cannula Oxygen Flow Rate 0 Objective Labs 02/01/25 07:32 02/01/25 07:32 [facility] Medical History HTN (hypertension) Transient cerebral ischemia Parkinson's disease Surgical History S/P deep brain stimulator placement Social History household members: none housing: assisted living facility Smoking Status: Never smoker alcohol intake: never Assessment & Plan Time-Based Coding :: [TOTAL MINUTES] spent with patient and on the chart (including review of chart, obtaining history, exam, reviewing outside data, placing orders, documenting exam and treatment plan, and counseling patient) on [DATE]. Quality VTE Deep Vein Thrombosis/Pulmonary Embolism Present on Admission: No
--- NOTE | 2025-02-02 16:30 | CM.DPNOTE ---
DCP note AUTOMOBILE DESIGNER reviewed EMR pt is POD1 ortho repair. PT/OT evals pending as of 1629 Sat. AUTOMOBILE DESIGNER lvm with [facility] to review referral, no response as of 1629 P: anticipate dc to SNF likely vs return to [facility]. Will continue to follow closely for DCP coordination NATALIE Barnhart
[2025-02-02 19:00] VITALS: BP 162/85; PULSE 75; RESP 17; TEMP 36.9; O2SAT 92
[2025-02-02 20:18] VITALS: BP 161/80; PULSE 73
[2025-02-02] MEDS: AMANTADINE HCL 137 MG 274 EACH PO (20:18)
[2025-02-02] MEDS: SODIUM CHLORIDE 0.9% FLUSH 10 ML IV ×2 (21:00→21:23)
[2025-02-03] MEDS: ACETAMINOPHEN 325 MG TABLET 650 MG PO ×5 (01:33→21:12)
[2025-02-03] MEDS: SODIUM CHLORIDE 0.9% FLUSH 10 ML IV ×3 (05:34→21:00)
[2025-02-03] MEDS: CARBIDOPA-LEVODOPA 25/100 TABLET 0.5 EACH PO ×5 (05:35→21:13)
[2025-02-03 08:00] VITALS: BP 168/73; PULSE 70; RESP 16; TEMP 36.7; O2SAT 95
[2025-02-03 09:59] LABS: Add Manual Diff / Slide Review NO; Hematocrit 37.0 % (36-46); Hemoglobin 12.5 g/dL (12.0-16.0); Lymphocytes Absolute Auto 400 /uL (1100-4500); Mean Corpuscular HGB Conc 33.7 % (30-36); Mean Corpuscular Hemoglobin 29.8 PG (26-34); Mean Corpuscular Volume 88.4 fL (80-100); Platelet Count 179 X10^3/uL (150-400)
[2025-02-03 10:11] LABS: Alanine Aminotransferase 42 IU/L (<35); Albumin 3.9 g/dL (3.5-5.0); Albumin Globulin Ratio 1.2 (1.0-2.8); Alkaline Phosphatase 91 U/L (38-126); Blood Urea Nitrogen 35 mg/dL (7-17); Calcium 9.2 mg/dL (8.4-10.2); Carbon Dioxide 24 mmol/L (22-32); Chloride 104 mmol/L (98-107); Estimated Glomerular Filt Rate 37 mL/min (>60); Globulin 3.2 g/dL (1.7-4.1); Glucose 122 mg/dL (70-99); HEMOLYSIS < 15 (0-50); Potassium 3.9 mmol/L (3.4-5.1); Sodium 137 mmol/L (137-145); Total Protein 7.1 g/dL (6.3-8.2)
--- NOTE | 2025-02-03 10:42 | PM.PNPO.1 ---
Subjective Subjective Interval history: PATIENT SUMMARY Nava Barroso is here following surgery for a right femoral neck fracture, performed by myself on February 01. The primary reason for this encounter is postoperative care and evaluation of her musculoskeletal condition. PAST SURGICAL HISTORY - Closed reduction percutaneous pinning of the right femoral neck, performed by myself on February 01. - Similar procedure on the left femoral neck approximately one year ago. SUBJECTIVE Nava reports not having much pain, rating it as 5 out of 10. She is experiencing significant weakness, which is understandable given her recent hip fracture and exacerbated Parkinson's symptoms. She was able to ambulate a little with physical therapy but remains very weak. Communication is challenging due to her mumbling and severe Parkinson's, but this is consistent with her baseline. Discussions with her family and medical team include considerations of possibly transitioning to palliative care if functional progress is limited. PHYSICAL EXAM 1) Constitutional: Nava is maintaining her baseline mental status, although she is mumbling and difficult to understand. 2) Musculoskeletal: Dressing CDI. Flexes/extends hallux and ankle. Able to very weakly raise her foot off the bed. LABS - AST: 40 (previously 29 on February 01) - ALT: 42 (previously 8 on February 01) - Creatinine: 1.45 (up from 1.25 on December 30, 2024) - Hemoglobin: 12.5 ASSESSMENT - Right femoral neck fracture, post-surgical repair. - Severe Parkinson's disease with recent exacerbation. - Potential renal function alteration (slight increase in creatinine). PLAN - Continue monitoring labs and renal function. - Physical therapy to assess and encourage mobility and functional recovery. - Discuss and evaluate discharge planning and possible transition to palliative care based on functional progress. DISPOSITION Nava will need to return to a care facility postoperatively. Evaluations are ongoing regarding [facility] capacity to meet all her care needs. FOLLOWUP Follow up with [facility] 6 weeks postop with films. She can have her gwendolyn removed at 2 weeks postop at her facility Exam Vital Signs (past 8 hours): - 02/03/25 08:00 Temperature 98.1 F Pulse Rate 70 Respiratory Rate 16 Blood Pressure 168/73 H Pulse Oximetry 95 Oxygen Flow Rate 0 Oxygen Delivery Method Nasal Cannula Oxygen Flow Rate 0 Objective Labs 02/03/25 09:45 02/03/25 09:45 Labs: Laboratory Results - last 24 hr 02/03/25 09:45 WBC 9.3 RBC 4.19 Hgb 12.5 Hct 37.0 MCV 88.4 MCH 29.8 MCHC 33.7 RDW 14.9 H Plt Count 179 Neut % (Auto) 85.7 H Lymph % (Auto) 4.4 L [place] % (Auto) 7.2 Eos % (Auto) 2.3 Baso % (Auto) 0.4 Neut # (Auto) 8000 H Lymph # (Auto) 400 L [place] # (Auto) 700 Eos # (Auto) 200 Baso # (Auto) 0 Sodium 137 Potassium 3.9 Chloride 104 Carbon Dioxide 24 BUN 35 H Creatinine 1.45 H Estimated GFR 37 L BUN/Creatinine Ratio 24.1 H Glucose 122 H Calcium 9.2 Total Bilirubin 0.8 AST 40 H ALT 42 H Alkaline Phosphatase 91 Total Protein 7.1 Albumin 3.9 Globulin 3.2 Albumin/Globulin Ratio 1.2 [facility] Medical History HTN (hypertension) Transient cerebral ischemia Parkinson's disease Surgical History S/P deep brain stimulator placement Social History household members: caregiver housing: assisted living facility Smoking Status: Never smoker alcohol intake: never Assessment & Plan Post-op Postoperative Procedures: Procedures Operation Date: 02/01/25 17:15 Actual Procedure Side Surgeon p ORIF Hip/Cannulated Screws x3 Right Jg Barnes MD Quality VTE Deep Vein Thrombosis/Pulmonary Embolism Present on Admission: No
--- NOTE | 2025-02-03 13:48 | PT.IPTN ---
Current Diagnoses Parkinson's disease without dyskinesia, with fluctuations (02/01/25) Essential (primary) hypertension (02/01/25) Left bundle-branch block, unspecified (02/01/25) Fracture of unspecified part of neck of right femur, initial encounter for closed fracture (02/01/25) Surgery Performed Operation Date: 02/01/25 17:15 Actual Procedures p ORIF Hip/Cannulated Screws x3(Right) - Jg Barnes MD Physical Therapy Treatment Note M2 PT-IP Current Condition Start: 02/02/25 18:36 Freq: NEEDED Status: Active Protocol: Document 02/02/25 15:17 AB (Rec: 02/02/25 18:54 AB Desktop) Physical Therapy Current Condition Current Condition Evaluation Date 02/02/25 Treatment Diagnosis R hip fx s/p ORIF; difficulty in walking Onset Date 02/01/25 M3 PT-IP Subjective Start: 02/02/25 18:36 Freq: NEEDED Status: Active Protocol: Document 02/03/25 09:25 SAK (Rec: 02/03/25 13:48 SAK [id number]) Subjective Physical Therapy Visit Type Type Treatment Note Visit Start Time 09:25 Visit Stop Time 10:04 Number of GEOTECHNICAL OPERATING ENGINEER Visits 0 Physical Therapy Visit Comments Patient Comments Agreeable to participate in PT. Therapy Pain Assessment Pain When Pain Assessed During Mobility Pain Present Pain Present Pain Reported Location Right hip Intensity 6 Pain Management Apply Cold,Modification of Treatment,Re-positioning, Techniques Timing of Activity with Medications M4 PT-IP Mobility and Gait Start: 02/02/25 18:36 Freq: NEEDED Status: Active Protocol: Document 02/03/25 09:25 SAK (Rec: 02/03/25 13:48 [facility] [id number]) PT-Bed Mobility Assessment Supine to Sit Supine to Sit Maximum Assistance Sit to Supine Sit to Supine Maximum Assistance Scooting Scooting to Edge of Moderate Assistance Bed PT-Transfer Assessment Sit to and From Stand Sit to and from Moderate Assistance,Maximum Assistance,1 Person Stand Assistance Equipment Transfer Assistive Gait Belt,Front Wheeled Walker Device Orthotic/Prosthetic No Devices or Brace: Comments Mobility Comments Pt. supine in bed. Required mod to max assist to move supine to sit. Mod to max assist sit to stand. Required continuous cues for straightening knees, standing upright. Pt. ambulated 10 ft in room with cues and mod-max assist for right knee control due to giving way, short, shuffling steps, continuous cues for safety. Returned to bed with mod assist and cues for safety. Max assist sit to supine. Gait Assessment Gait Gait Assistance Maximum Assistance,1 Person Assist Required: Distance (Feet) 10 Able to Maintain Yes Weight Bearing Status During Gait Assistive Devices Assistive Device Gait Belt,Front Wheeled Walker Orthotic/Prosthetic No Devices or Brace: Gait Deviations General Gait Pattern Antalgic,Decreased Stride Length,Decreased Feet Clearance,Step-to Gait Factors Limiting Gait Function Factors Limiting Decreased Activity Tolerance,Decreased Strength, Gait Function Difficulty Following Directions,Incoordination,Limited Range of Motion,Poor Balance,Poor Safety Awareness PT-Balance Assessment Sitting Balance and Reactions Static Sitting Good Balance Ability Dynamic Sitting Fair Balance Ability Standing Balance and Reactions Static Standing Poor Balance Ability Dynamic Standing Poor Balance Ability Device Used FWW M5 PT-IP Objective Assessments Start: 02/02/25 18:36 Freq: NEEDED Status: Active Protocol: Document 02/03/25 09:25 [facility] (Rec: 02/03/25 13:48 [facility] [id number]) Orientation Orientation/Cognition Level of Alertness Alert Orientation Name,Place,Situation Safety Awareness Decreased Safety Awareness Memory Description Short Term Impaired Comments slow and soft unclear speech related to Parkinson's Strength Comments Strength Comments requires min assist for full SAQ and LAQ M6 PT-IP Treatment Start: 02/02/25 18:36 Freq: NEEDED Status: Active Protocol: Document 02/03/25 09:25 [facility] (Rec: 02/03/25 13:48 [facility] [id number]) Physical Therapy Treatment Exercises Exercises Ankle Pumps,Gluteal Sets,Quad Sets,Heel Slides,Supine Hip Abduction,Short Arc Quads M7 PT-IP Assessment and Plan Start: 02/02/25 18:36 Freq: NEEDED Status: Active Protocol: Document 02/03/25 09:25 [facility] (Rec: 02/03/25 13:48 [facility] [id number]) PT Summary Assessment and Plan Potential Rehabilitation Fair Potential Status of Condition Evolving at Evaluation Summary Impairments Pain,ROM,Strength,Balance,Coordination,Sensation,Tone, Cognition,Bed Mobility,Transfers,Gait,Activity Tolerance Assessment Summary No significant progress with functional mobility skills today, requires mod-max assist for all, unable to fully extend her right knee or support herself with UE' s during gait without mod to max assist. Appears Parkinson's disease having large impact on patient function and is a barrier with rehab. Feel she will require SNF rehab, though patient expresses desire to go back to [facility]. Advised patient that at this time she requires more assist than can likely be provided at [facility]. Goals Bed Mobility Goal Minimal Assistance Transfer Goal Minimal Assistance,Front Wheeled Walker Gait Goal Minimal Assistance,Front Wheel Walker Gait Distance 50 Other Goals improve bed mobility, transfers, ambulation using FWW 100 ft SBA Days to Meet Goals 10 Frequency of Treatment Frequency Of Once a Day Treatment Treatment Plan Physical Therapy Bed Mobility Training,Transfer Training,Gait Training, Treatment Plan Therapeutic Exercise,Balance Retraining,Post Op Education,Discharge Planning,Hot or Cold Pack, Neuromuscular Re-ed,Coordination Retraining,Manual Therapy Weight Bearing Status Weight Bearing Weight Bear as Tolerated Status Allowed Weight RLE WBAT Bearing Amount ( enter % or #) (%) Recommendations To Nursing Amount of Assist 2 Person Assist Needed Discharge Recommendations PT Discharge Home with 22/11 Assist Available,Home Health,SNF Rehab, Recommendations Home vs SNF Equipment Needed for FWW Home Before Discharge Transportation Needs Wheelchair/Cabulance at Discharge - PT assist 1
--- NOTE | 2025-02-03 15:46 | CM.DPC ---
DCP SNF vs [facility] Cont: Per MD, pt making progress and likely may be stable for discharge tomorrow Mon. Per PT, initially recommending SNF but pt declines SNF at this time and wants to return to [facility]. Per PT, pt made some progress today and pending assist ability at [facility] recommending SNF vs [facility]. DESTINEE faxed updated clinicals to [facility] to fax [phone] attn Lissette to review to confirm if they can accept the pt at discharge. Will need to call Tuesday AM to discuss further when admissions back in the office. DESTINEE secure emailed clinicals to Arcelia at [facility] requesting review to see if they can accept pt back at discharge and will need to follow up with them tomorrow Mon AM. NATALIE Stark
--- NOTE | 2025-02-03 17:21 | PM.PN.1 ---
Subjective Subjective Date Patient Seen: 02/03/25 Interval history: Chief complaint: Right hip pain secondary to subcapital hip fracture with fall ground level in a patient with advanced Parkinson's disease History of present illness: 02/01: 79 y/o resident of [place] and [facility] of Parkinson's disease with recurrent falls, presented with subcapital right femoral neck fracture. She was recently hospitalized in [place] for suspected stroke that turned out to be TIA. Today she did not sustain additional injuries with GLF. Complains on right hip pain. Patient taken to the operating room by Orthopedic surgery: Hospital course: 02/02: Pain control is satisfactory postoperative no complaints postoperative no signs of complications no complaints or shortness for breath fever or chills 02/03: Good pain control working with physical therapy Review of systems: No fever or chills No chest pain shortness for breath palpitations No nausea vomiting diarrhea No paresthesia paresis Physical exam: Elderly female very sleepy but responsive to questions with appropriate facial gestures HEENT unremarkable Heart rate and rhythm Lungs clear Abdomen benign Extremities no edema Good capillary refill in toes Neurologic nonfocal Assessment and plan: Closed subcapital fracture of left femur status post minimally invasive fixation without any signs of postoperative complications Uneventful postoperative course DVT prophylaxis per stewardship of Orthopedic surgery Parkinson's disease with dyskinesia status post deep brain stimulator History of deep brain stimulator Continue Sinemet Continue amantadine Close supervision for prevention of further falls Agree with Orthopedic surgery for consideration of palliative care DVT prophylaxis: Per orthopedic stewardship Code status: Full code blue Disposition: Inpatient presently At time of discharge return to alf [place] [facility] 35 minutes were involved in evaluation of this patient including cloc-me-dupn evaluation of the patient physical examination review of records review of objective laboratory findings and discussion with care management and treatment team Exam Vital Signs (past 8 hours): Oxygen Delivery Method Nasal Cannula Oxygen Flow Rate 0 Objective Labs 02/03/25 09:45 02/03/25 09:45 Labs: Laboratory Results - last 24 hr 02/03/25 09:45 WBC 9.3 RBC 4.19 Hgb 12.5 Hct 37.0 MCV 88.4 MCH 29.8 MCHC 33.7 RDW 14.9 H Plt Count 179 Neut % (Auto) 85.7 H Lymph % (Auto) 4.[address] [place] % (Auto) 7.2 Eos % (Auto) 2.3 Baso % (Auto) 0.4 Neut # (Auto) 8000 H Lymph # (Auto) [address] [place] [place] # (Auto) 700 Eos # (Auto) 200 Baso # (Auto) 0 Sodium 137 Potassium 3.9 Chloride 104 Carbon Dioxide 24 BUN 35 H Creatinine 1.45 H Estimated GFR 37 L BUN/Creatinine Ratio 24.1 H Glucose 122 H Calcium 9.2 Total Bilirubin 0.8 AST 40 H ALT 42 H Alkaline Phosphatase 91 Total Protein 7.1 Albumin 3.9 Globulin 3.2 Albumin/Globulin Ratio 1.2 [facility] Medical History HTN (hypertension) Transient cerebral ischemia Parkinson's disease Surgical History S/P deep brain stimulator placement Social History household members: caregiver housing: assisted living facility Smoking Status: Never smoker alcohol intake: never Assessment & Plan Time-Based Coding :: [TOTAL MINUTES] spent with patient and on the chart (including review of chart, obtaining history, exam, reviewing outside data, placing orders, documenting exam and treatment plan, and counseling patient) on [DATE]. Quality VTE Deep Vein Thrombosis/Pulmonary Embolism Present on Admission: No
[2025-02-03 19:20] VITALS: BP 167/89; PULSE 75; RESP 15; TEMP 36.9; O2SAT 94
[2025-02-03 21:11] VITALS: BP 167/89; PULSE 75
[2025-02-03] MEDS: AMANTADINE HCL 137 MG 274 EACH PO (21:14)
[2025-02-04] MEDS: CARBIDOPA-LEVODOPA 25/100 TABLET 0.5 EACH PO ×5 (06:15→21:44)
[2025-02-04 07:55] VITALS: BP 162/90; PULSE 72; RESP 15; TEMP 36.8; O2SAT 94
[2025-02-04 08:32] VITALS: BP 167/89; PULSE 75
[2025-02-04] MEDS: SODIUM CHLORIDE 0.9% FLUSH 10 ML IV ×2 (08:33→21:45)
--- NOTE | 2025-02-04 09:22 | P.DS_ITS ---
History of Present Illness History of Present Illness Date Patient Seen: 02/04/25 Chief complaint: fall, rt hip pain no thinners Narrative: Chief complaint: Right hip pain secondary to subcapital hip fracture with fall ground level in a patient with advanced Parkinson's disease History of present illness: 02/01: 79 y/o resident of [place] and [facility]H of Parkinson's disease with recurrent falls, presented with subcapital right femoral neck fracture. She was recently hospitalized in [place] for suspected stroke that turned out to be TIA. Today she did not sustain additional injuries with GLF. Complains on right hip pain. Patient taken to the operating room by Orthopedic surgery: Hospital course: 02/02: Pain control is satisfactory postoperative no complaints postoperative no signs of complications no complaints or shortness for breath fever or chills 02/03: Good pain control working with physical therapy 02/04: Plan for discharge today [place] versus [place] depending whether the patient wants to continue rehab or pursue palliative care respectively Review of systems: No fever or chills No chest pain shortness for breath palpitations No nausea vomiting diarrhea No paresthesia paresis Physical exam: Elderly female very sleepy but responsive to questions with appropriate facial gestures HEENT unremarkable Heart rate and rhythm Lungs clear Abdomen benign Extremities no edema Good capillary refill in toes Neurologic nonfocal Assessment and plan: Closed subcapital fracture of left femur status post minimally invasive fixation without any signs of postoperative complications * Uneventful postoperative course * DVT prophylaxis per stewardship of Orthopedic surgery Parkinson's disease with dyskinesia status post deep brain stimulator * History of deep brain stimulator * Continue Sinemet * Continue amantadine * Close supervision for prevention of further falls * Agree with Orthopedic surgery for consideration of palliative care DVT prophylaxis: * Per orthopedic stewardship Code status: * Full code blue Disposition: * Appropriate for discharge * At time of discharge return to longterm [place] versus [place] * If goes to [place] consider palliative care 35 minutes were involved in evaluation of this patient including [id number] evaluation of the patient physical examination review of records review of objective laboratory findings and discussion with care management and treatment team Discharge Providers Provider Date of admission: 02/01/25 00:31 Discharge Date: 02/04/25 Primary care physician: Dante Francois MD Consults: 02/01/25 16:40 Consult to [facility] Routine Comment: Consulting Provider: [facility] Reason For Exam: Hip Reason for consultation: Hip 02/01/25 22:21 Consult to Pharmacy Routine Comment: fall risk 02/02/25 11:10 Consult to Occupational Therapy Evaluate & Treat Comment: Physician Instructions: Evaluate and treat Consult to Physical Therapy Evaluate & Treat Comment: Physician Instructions: Evaluate and Treat Discharge provider: Rocky Read MD Exam Vital Signs (past 8 hours): - 02/04/25 07:55 02/04/25 08:32 Temperature 98.3 F Pulse Rate 72 75 Respiratory Rate 15 Blood Pressure 162/90 H 167/89 H Pulse Oximetry 94 Oxygen Flow Rate 0 Oxygen Delivery Method Nasal Cannula Oxygen Flow Rate 0 Objective Labs 02/03/25 09:45 02/03/25 09:45 Labs: Laboratory Results - last 24 hr 02/03/25 09:45 WBC 9.3 RBC 4.19 Hgb 12.5 Hct 37.0 MCV 88.4 MCH 29.8 MCHC 33.7 RDW 14.9 H Plt Count 179 Neut % (Auto) 85.7 H Lymph % (Auto) 4.4 L [place] % (Auto) 7.2 Eos % (Auto) 2.3 Baso % (Auto) 0.4 Neut # (Auto) 8000 H Lymph # (Auto) 400 L [place] # (Auto) 700 Eos # (Auto) 200 Baso # (Auto) 0 Sodium 137 Potassium 3.9 Chloride 104 Carbon Dioxide 24 BUN 35 H Creatinine 1.45 H Estimated GFR 37 L BUN/Creatinine Ratio 24.1 H Glucose 122 H Calcium 9.2 Total Bilirubin 0.8 AST 40 H ALT 42 H Alkaline Phosphatase 91 Total Protein 7.1 Albumin 3.9 Globulin 3.2 Albumin/Globulin Ratio 1.2 PFSH Medical History HTN (hypertension) Transient cerebral ischemia Parkinson's disease Surgical History S/P deep brain stimulator placement Social History household members: caregiver housing: assisted living facility alcohol intake: never Discharge Plan Discharge Plan Patient Disposition: SNF Transfer to: [facility] Living Other facility: [facility] Discharge orders & Medications Prescriptions: New acetaminophen 325 mg Tablet 650 mg PO Q6H Qty: 7 0RF docusate sodium 100 mg Capsule 100 mg PO BID Qty: 7 0RF polyethylene glycol 3350 [Gavilax] 17 gram Powder In Packet 17 g PO DAILY PRN (Reason: Constipation) Qty: 14 0RF oxycodone 5 mg Tablet 5 mg PO Q3HR PRN (Reason: Pain, Moderate (4-6)) Qty: 9 0RF Continued Gocovri 137 mg capsule,extended release 24hr 274 mg PO BEDTIME amlodipine 10 mg tablet 10 mg PO DAILY carbidopa-levodopa 25-100 mg tablet 0.5 tab PO 5XD carvedilol 12.5 mg tablet 12.5 mg PO BID Follow up/Referrals: Dante Francois MD [Primary Care Provider, General Surgery] Visit Report/Discharge Packet Stand Alone Forms: Patient Portal/API Discharge Data Primary Care Provider: Dante Francois Quality VTE Deep Vein Thrombosis/Pulmonary Embolism Present on Admission: No
--- NOTE | 2025-02-04 09:54 | PT.IPTN ---
Current Diagnoses Parkinson's disease without dyskinesia, with fluctuations (02/01/25) Essential (primary) hypertension (02/01/25) Left bundle-branch block, unspecified (02/01/25) Fracture of unspecified part of neck of right femur, initial encounter for closed fracture (02/01/25) Surgery Performed Operation Date: 02/01/25 17:15 Actual Procedures p ORIF Hip/Cannulated Screws x3(Right) - Jg Barnes MD Physical Therapy Treatment Note M2 PT-IP Current Condition Start: 02/02/25 18:36 Freq: NEEDED Status: Active Protocol: Document 02/04/25 09:54 SP (Rec: 02/04/25 12:31 SP Laptop) Physical Therapy Current Condition Current Condition Evaluation Date 02/02/25 Treatment Diagnosis R hip fx s/p ORIF; difficulty in walking Onset Date 02/01/25 M3 PT-IP Subjective Start: 02/02/25 18:36 Freq: NEEDED Status: Active Protocol: Document 02/04/25 09:54 SP (Rec: 02/04/25 12:31 SP Laptop) Subjective Physical Therapy Visit Type Type Treatment Note Visit Start Time 09:22 Visit Stop Time 09:54 Notes Vitals approximate: supine BP 120/70, seated 111/58, after mobility 86/53, seated up in chair end tx 111/69 VERNON Thompson assisted as 2nd person assist throughout tx while under direct instruction/supervision PRAVIN Chapin, with pt permission. Physical Therapy Visit Comments Patient Comments Agreeable to participate in PT. Therapy Pain Assessment Pain When Pain Assessed During Mobility Pain Present Pain Present Pain Reported Location Right hip Intensity 5 Scale Used Numeric (0 - 10) Description With Movement Pain Behaviors Facial Grimacing Pain Management Distraction,Modification of Treatment,Re-positioning, Techniques Timing of Activity with Medications M4 PT-IP Mobility and Gait Start: 02/02/25 18:36 Freq: NEEDED Status: Active Protocol: Document 02/04/25 09:54 SP (Rec: 02/04/25 12:31 SP Laptop) PT-Bed Mobility Assessment Supine to Sit Supine to Sit Maximum Assistance,1 Person Assistance,Head of Bed Elevated,Bedrails Scooting Scooting to Edge of Maximum Assistance Bed PT-Transfer Assessment Sit to and From Stand Sit to and from Maximum Assistance,2 Person Assistance,Use of Upper Stand Extremities Equipment Transfer Assistive Gait Belt,Front Wheeled Walker Device Orthotic/Prosthetic No Devices or Brace: Transfers Transfer Destination Chair Transfer Technique Stand Step Pivot Transfer Ability Level of Assist Maximum Assistance,2 Person Assistance,Use of Upper Extremities Comments Mobility Comments Pt Max A x1 for sup>sit HOB elevated (approx 45deg) and bed rail BUEs and scoot to EOB with use transfer pad. Sitting EOB Min> CGA cues for trunk more forward positioning to assist BLEs on floor WB. Max A x2 for sit and controlled sitting with use of FWW, cues proper hand placement, stood for 1 min then seated rest, the stand step pivot transfer, 1 step cues for each LE and max A fww repositioning, cued back up fully feel BLEs on chair and reach back to sit controlled, Max A x2. Max A x2 to scoot back in chair (waffle cushion provided for skin integrity in chair). pt sat at edge of chair unsupported other than BUE on chair arms for approx 8min, instructed heel raises improved static sitting 5%> CGA. Pt was supported reclined in chair, provided pillow on R side to support trunk alignment midline, tends to lean off to R. She had call light and all needs in reach, notified nursing to provide chair alarm. Gait Assessment Gait Gait Assistance Maximum Assistance,2 Person Assist Required: Distance (Feet) 2 Able to Maintain Yes Weight Bearing Status During Gait Assistive Devices Assistive Device Gait Belt,Front Wheeled Walker Orthotic/Prosthetic No Devices or Brace: Gait Deviations General Gait Pattern Antalgic,Decreased Stride Length,Decreased Feet Clearance,Flexed Trunk,Lateral Trunk Lean,Step-to Gait Factors Limiting Gait Function Factors Limiting Decreased Activity Tolerance,Decreased Strength, Gait Function Difficulty Following Directions,Incoordination,Limited Range of Motion,Poor Balance,Poor Safety Awareness Comments Gait Comments see mobility comments Stair Climbing Assessment Comments Stair Climbing no stairs need to assess Comments PT-Balance Assessment Sitting Balance and Reactions Static Sitting Fair Balance Ability Dynamic Sitting Poor Balance Ability Standing Balance and Reactions Static Standing Poor Balance Ability Dynamic Standing Poor Balance Ability Device Used FWW M5 PT-IP Objective Assessments Start: 02/02/25 18:36 Freq: NEEDED Status: Active Protocol: Document 02/03/25 09:25 MALCOM (Rec: 02/03/25 13:48 [facility] [id number]) Orientation Orientation/Cognition Level of Alertness Alert Orientation Name,Place,Situation Safety Awareness Decreased Safety Awareness Memory Description Short Term Impaired Comments slow and soft unclear speech related to Parkinson's Strength Comments Strength Comments requires min assist for full SAQ and LAQ M6 PT-IP Treatment Start: 02/02/25 18:36 Freq: NEEDED Status: Active Protocol: Document 02/04/25 09:54 SP (Rec: 02/04/25 12:31 SP Laptop) Physical Therapy Treatment Exercises Exercises Ankle Pumps M7 PT-IP Assessment and Plan Start: 02/02/25 18:36 Freq: NEEDED Status: Active Protocol: Document 02/04/25 09:54 SP (Rec: 02/04/25 12:31 SP Laptop) PT Summary Assessment and Plan Potential Rehabilitation Fair Potential Status of Condition Evolving at Evaluation Summary Impairments Pain,ROM,Strength,Balance,Coordination,Sensation,Tone, Cognition,Bed Mobility,Transfers,Gait,Activity Tolerance Progress Towards Slow Progress due to Pain,Slow Progress due to Activity Goals Tolerance Assessment Summary Pt Max A x1 bed mobility, Max A x2 with FWW transfers, CG- Min A sitting balance side of bed and front of chair. Recommending SNF for progress strength and functional mobility independence. Goals Bed Mobility Goal Minimal Assistance Transfer Goal Minimal Assistance,Front Wheeled Walker Gait Goal Minimal Assistance,Front Wheel Walker Gait Distance 50 Other Goals improve bed mobility, transfers, ambulation using FWW 100 ft SBA Days to Meet Goals 10 Frequency of Treatment Frequency Of Once a Day Treatment Treatment Plan Physical Therapy Bed Mobility Training,Transfer Training,Gait Training, Treatment Plan Therapeutic Exercise,Balance Retraining,Post Op Education,Discharge Planning,Hot or Cold Pack, Neuromuscular Re-ed,Coordination Retraining,Manual Therapy Other bed mobility, transfers, gait when tolerated with FWW, Recommendations and may need chair follow. Next Treatment Focus Weight Bearing Status Weight Bearing Weight Bear as Tolerated Status Allowed Weight RLE WBAT Bearing Amount ( enter % or #) (%) Recommendations To Nursing Amount of Assist 2 Person Assist Needed Discharge Recommendations PT Discharge SNF Rehab Recommendations Equipment Needed for FWW Home Before Discharge Transportation Needs Wheelchair/Cabulance at Discharge - PT assist 2
[2025-02-04] MEDS: DOCUSATE 100 MG CAPSULE PO ×2 (09:59→21:43)
[2025-02-04] MEDS: ACETAMINOPHEN 325 MG TABLET 650 MG PO ×2 (09:59→21:44)
[2025-02-04 11:29] LABS: Add Manual Diff / Slide Review NO; Hematocrit 36.9 % (36-46); Hemoglobin 12.5 g/dL (12.0-16.0); Lymphocytes Absolute Auto 600 /uL (1100-4500); Mean Corpuscular HGB Conc 33.9 % (30-36); Mean Corpuscular Hemoglobin 29.8 PG (26-34); Mean Corpuscular Volume 88.1 fL (80-100); Platelet Count 195 X10^3/uL (150-400)
[2025-02-04 11:51] LABS: Alanine Aminotransferase 20 IU/L (<35); Albumin 3.9 g/dL (3.5-5.0); Albumin Globulin Ratio 1.3 (1.0-2.8); Alkaline Phosphatase 86 U/L (38-126); Blood Urea Nitrogen 29 mg/dL (7-17); Calcium 8.8 mg/dL (8.4-10.2); Carbon Dioxide 21 mmol/L (22-32); Chloride 102 mmol/L (98-107); Estimated Glomerular Filt Rate 37 mL/min (>60); Globulin 3.1 g/dL (1.7-4.1); Glucose 118 mg/dL (70-99); HEMOLYSIS < 15 (0-50); Potassium 4.0 mmol/L (3.4-5.1); Sodium 134 mmol/L (137-145); Total Protein 7.0 g/dL (6.3-8.2)
--- NOTE | 2025-02-04 12:28 | CM.DPNOTE ---
DCP Cont According to Gini at [facility]; they cannot accommodate patient's care needs at NH, SNF is recommended. Conversation with Lissette at [facility] this morning; they can accept patient tomorrow 02/05. Placed call to daughter Dorina to discuss dispo; Dorina explains patient had wanted [facility] initially and has changed her mind. Patient now feels it would be better to stay in her community where people know her and can visit. Placed call to Lissette in admissions at [facility] P [phone] F [phone]; had to LM updating on patient's preference. Requested Lissette hold onto this referral in case [facility] cannot accept in a timely manner. Sent email to Ayanna Elizabeth <[email or web address]> and Dominik Alexandre <[email or web address]> with this referral, covering for [facility] admissions. Included all clinical available, both initial and updated clinical- included DC SNF packet as Dr Read was hopeful patient would discharge today. Plan: Discharge likely to [facility] via [place] [facility]. MILTON done. CM team following closely. FRANKIE
--- NOTE | 2025-02-04 13:35 | OT.IP.EVAL ---
Current Diagnoses Parkinson's disease without dyskinesia, with fluctuations (02/01/25) Essential (primary) hypertension (02/01/25) Left bundle-branch block, unspecified (02/01/25) Fracture of unspecified part of neck of right femur, initial encounter for closed fracture (02/01/25) Surgery Performed Operation Date: 02/01/25 17:15 Actual Procedures p ORIF Hip/Cannulated Screws x3(Right) - Jg Barnes MD Past Medical History (Last Reviewed 02/01/25 @ 11:41 by Ravi Webster MD) HTN (hypertension) Parkinson's disease Transient cerebral ischemia Surgical History (Last Reviewed 02/01/25 @ 11:41 by Ravi Webster MD) S/P deep brain stimulator placement Occupational Therapy Inpatient Evaluation/Re-Eval M1 PT/OT-IP Prior Functional Status Start: 02/02/25 18:36 Freq: NEEDED Status: Active Protocol: Document 02/04/25 13:13 IRENE (Rec: 02/04/25 13:35 IRENE [id number]) Medical Review Prior Functional Status Medical History Yes Reviewed Communication able to make needs known but with slow soft speech Mobility and Gait pt stated that she was modified independent with transfers and ambulation using a 4WW and staff assists her as needed; pt stated that staff assists her with getting into the bed but she is able to do supine to sit independently Activities of Daily pt reports that she was performing her BADLs at [facility] to Living and IADL's include bathing, dressing, and t/f to bathroom. Pt reports that she drives at times. [facility] provides meals and house work per pt Social History Household Members caregiver Living Arrangements Assisted Living Number of Floors ( One Floor Floors) Number of Stairs To pt lives at [facility] and stated that staff assists Enter/Railing? her as needed Home Environment Standard Height Toilet,Walk in Shower Home Equipment Four Wheel Walker,Shower Seat with Backrest,Hand Held Shower,Grab Bars Near Toilet,Grab Bars In Shower Additional Social pt has an adjustable bed History Comment M2 OT-IP Current Condition Start: 02/04/25 13:13 Freq: Status: Active Protocol: Document 02/04/25 13:13 IRENE (Rec: 02/04/25 13:35 IRENE [id number]) Occupational Therapy Current Condition Current Condition Evaluation Date 02/04/25 Treatment Diagnosis s/p R hip ORIF, decreased self care Diagnosis Onset Date 02/01/25 Weight Bearing Status Weight Bearing Weight Bear as Tolerated Status M3 OT- IP Subjective and Pain Start: 02/04/25 13:13 Freq: Status: Active Protocol: Document 02/04/25 13:13 IRENE (Rec: 02/04/25 13:35 SHEYLAPRLALA [id number]) OT- Subjective Occupational Therapy Visit Type Type Initial Evaluation Visit Start Time 10:35 Visit Stop Time 11:05 Notes Pt was sitting up in recliner on entrance of OT and agreeable to OT eval. Pt is very soft spoken and has to repeat herself many times. Occupational Therapy Visit Comments Patient Comments I'm just trying to get home. Patient/Caregiver To get better Goals OT Pain Assessment Pain When Pain Assessed At Rest Pain Present Pain Present Pain Reported Location Right hip Intensity 4 Scale Used Numeric (0 - 10) M4 OT- IP ADL's Start: 02/04/25 13:13 Freq: Status: Active Protocol: Document 02/04/25 13:13 IRENE (Rec: 02/04/25 13:35 SHEYLAPRLALA [id number]) OT [id number] Comments OT Self-Feeding not observed Comments OT ADL-Grooming General Evaluation Grooming Ability Standby Assistance Areas Needing Retrieving/Set-up of Grooming Items Assistance Comments OT Grooming Comments Pt was able to brush her hair, wash her face, and wash her hands on set up of supplies while up in chair OT ADL-Oral Care General Eval Oral Care Ability Standby Assistance Comments Oral Care Comments Pt performs oral hygiene on setup of supplies while up in chair. OT ADL-Dressing General Eval Lower Body Dressing Total Assistance Ability Areas Needing Underpants/Brief,Socks Assistance Comments OT Dressing Comments Pt required total A for socks and brief mgmt OT ADL-Toileting General Evaluation Toileting Ability Total Assistance Comments OT Toileting Pt asked to use BSC, pt required total A for mgmt of Comments brief and hygiene OT ADL-Bathing Comments OT Bathing Comments not observed, sponge bath would be safest currently M5 OT- IP IADL's Start: 02/04/25 13:13 Freq: Status: Active Protocol: Document 02/04/25 13:13 IRENE (Rec: 02/04/25 13:35 REPLACED BY [facility] [id number]) OT-Instrumental Activities of Daily Living Deficits IADL Deficits Deficits Identified Home Safety Awareness Awareness of Need Good Awareness for Assistance at Home Medication Management Medication No Deficits Identified Management Money Management Money Management No Deficits Identified Meal Preparation Meal Preparation Caregiver Provides Assist Paint Spray Tender Paint Spray Tender Caregiver Provides Assist Driving Driving Comments pt will need assist on dc, pt reports performing WEIGHER PACKING M6 OT- IP Functional Cognition Start: 02/04/25 13:13 Freq: Status: Active Protocol: Document 02/04/25 13:13 SHEYLAROSSICAMILLEKARLA (Rec: 02/04/25 13:35 REPLACED BY [facility] [id number]) Cognitive Factors Limiting Selfcare Function Cognitive Ability Level of Alertness Alert Patient Orientation Name,Place,Situation Attention Span Capable of Focused Attention,Capable of Sustained Ability Attention Ability to Follow Able to Follow One Step Commands Commands Safety Awareness Underestimates Need for Assistance Problem Solving Unable to Identify Errors,Needs Assist to Identify Ability Solutions OT- Vision and Hearing OT- Hearing Assessment OT- Hearing WFL Assessment OT- Vision Assessment Visual Acuity WFL,Glasses All The Time M7 OT- IP Mobility and Balance Start: 02/04/25 13:13 Freq: Status: Active Protocol: Document 02/04/25 13:13 SHEYLAROSSICAMILLEKARLA (Rec: 02/04/25 13:35 REPLACED BY [facility] [id number]) OT-Transfer Assessment Sit to and From Stand Sit to and from Maximum Assistance,1 Person Assistance,Use of Upper Stand Extremities Transfers Transfer Ability Maximum Assistance,1 Person Assistance,2 Person Assistance,Use of Upper Extremities Technique Transfer Destination Bedside Commode,Chair Transfer Technique Stand Step Pivot Devices Transfer Assistive Gait Belt,Front Wheeled Walker Devices Comments Mobility Comments Pt MAX A x1 for sit>stand with vc to push up from chair and to stand tall. Pt takes a few shuffling steps forward and back to chair returning to sitting with MOD -MAX Ax1. Pt requests BSC. Pt performs sit>stand with MAX A x 1 and stand pivot t/f to BSC with MAX A. Following toileting pt unable to take steps. Pt requires MAX A x2 for sit>stand and hot top liner helper moves BSC and replaces it with recliner. Pt returns to sitting with MAX A x2. Pt needs heavy cues for hand placement, to stand tall, and sequencing. OT- Balance Assessment Sitting Balance and Reactions Static Sitting Fair Balance Ability Dynamic Sitting Poor Balance Ability Standing Balance and Reactions Static Standing Poor Balance Ability Dynamic Standing Poor Balance Ability M8 OT- IP Objective Assessments Start: 02/04/25 13:13 Freq: Status: Active Protocol: Document 02/04/25 13:13 IRENE (Rec: 02/04/25 13:35 [facility] [id number]) OT Gross Range of Motion Upper Extremity Range of Motion Assessment Within Functional Limits OT Strength Upper Extremity Strength Shoulder 4 Elbow 4+ Hand 4+ Hand [employer] Erector Strength Hand Dominance Left OT- Coordination Assessment Upper Extremity Finger to Nose Test Within Functional Limits Finger Tapping Test Within Functional Limits OT-Muscle Tone Assessment Muscle Tone WNL Yes OT Sensation Assessment Edema Edema Absent M9 OT- IP Assessment and Plan Start: 02/04/25 13:13 Freq: Status: Active Protocol: Document 02/04/25 13:13 IRENE (Rec: 02/04/25 13:35 [facility] [id number]) OT Summary Assessment and Plan Potential Rehabilitation Fair Potential Analytic Complexity Moderate at Evaluation Summary OT Impairments Pain,Strength,Balance,Functional Mobility,Grooming, Dressing,Toileting,Bathing,Toilet Transfers,Shower Transfers,Activity Tolerance Progress Towards Slow Progress due to Activity Tolerance Goals Assessment Summary Pt is 79 yo F who had a recent GLF and sustained a R hip fx, she is s/p ORIF and is WBAT. Pt required MAX A of 1 for sit to stand and MAX A of 1-2 for functional tfs. Pt required TOTAL A for LB dressing, S for grooming and oral care in seated, TOTAL A for toileting . Pt presents with decreased functional mobility, BADLs , activity intolerance, and decreased balance. Skilled OT services are appropriate to address pt deficits and promote return toward PLOF. Pt will require 24/7 assist on dc and would benefit from SNF to promote return to PLOF prior to returning to [facility] Goals Self-Feeding Goal Independent Grooming Goal Independent Dressing Goal Independent,Long Handled Shoe Horn,Field Talent Qualification Specialist,Sock Aid Toileting Goal Independent Bathing Goal Independent,Hand Held Shower Sprayer,Long Handled Sponge or [place] Toilet Transfer Goal Independent,Grab Bars Shower Transfer Goal Independent,Shower Chair,Grab Bars Days to Meet Goals 15 Frequency of Treatment Other frequency 5x/wk Treatment Plan OT Treatment Plan ADL Training,Functional Mobility,Therapeutic Exercises, Patient/Family Education,Discharge Planning Discharge Recommendations OT Discharge SNF Rehab Recommendations Transportation Needs Wheelchair/Cabulance,Stretcher/Ambulance at Discharge
[2025-02-04 21:43] VITALS: BP 153/89; PULSE 67
[2025-02-04 22:20] VITALS: BP 158/75; PULSE 68; RESP 13; TEMP 36.9; O2SAT 94
[2025-02-05] MEDS: CARBIDOPA-LEVODOPA 25/100 TABLET 0.5 EACH PO ×3 (05:53→14:15)
[2025-02-05 08:00] VITALS: BP 139/79; PULSE 79; RESP 16; TEMP 36.2; O2SAT 97
--- NOTE | 2025-02-05 09:00 | P.DS_ITS ---
History of Present Illness History of Present Illness Chief complaint: fall, rt hip pain no thinners Narrative: CChief complaint: Right hip pain secondary to subcapital hip fracture with fall ground level in a patient with advanced Parkinson's disease History of present illness: 02/01: 79 y/o resident of [facility] and PMH of Parkinson's disease with recurrent falls, presented with subcapital right femoral neck fracture. She was recently hospitalized in [place] for suspected stroke that turned out to be TIA. Today she did not sustain additional injuries with GLF. Complains on right hip pain. Patient taken to the operating room by Orthopedic surgery: Hospital course: 02/02: Pain control is satisfactory postoperative no complaints postoperative no signs of complications no complaints or shortness for breath fever or chills 02/03: Good pain control working with physical therapy 02/04: Plan for discharge today [facility] versus [facility] depending whether the patient wants to continue rehab or pursue palliative care respectively 02/05: No change approved for transfer to [facility] Review of systems: No fever or chills No chest pain shortness for breath palpitations No nausea vomiting diarrhea No paresthesia paresis Physical exam: Elderly female very sleepy but responsive to questions with appropriate facial gestures HEENT unremarkable Heart rate and rhythm Lungs clear Abdomen benign Extremities no edema Good capillary refill in toes Neurologic nonfocal Assessment and plan: Closed subcapital fracture of left femur status post minimally invasive fixation without any signs of postoperative complications * Uneventful postoperative course * DVT prophylaxis per stewardship of Orthopedic surgery Parkinson's disease with dyskinesia status post deep brain stimulator * History of deep brain stimulator * Continue Sinemet * Continue amantadine * Close supervision for prevention of further falls * Agree with Orthopedic surgery for consideration of palliative care DVT prophylaxis: * Per orthopedic stewardship Code status: * Full code blue Disposition: * Appropriate for discharge * At time of discharge return to [facility] versus [facility] * If goes to [facility] consider palliative care 35 minutes were involved in evaluation of this patient including [id number] evaluation of the patient physical examination review of records review of objective laboratory findings and discussion with care management and treatment team Discharge Providers Provider Date of admission: 02/01/25 00:31 Discharge Date: 02/05/25 Primary care physician: Dante Francois MD Consults: 02/01/25 16:40 Consult to [facility] Routine Comment: Consulting Provider: [facility] Reason For Exam: Hip Reason for consultation: Hip 02/01/25 22:21 Consult to Pharmacy Routine Comment: fall risk 02/02/25 11:10 Consult to Occupational Therapy Evaluate & Treat Comment: Physician Instructions: Evaluate and treat Consult to Physical Therapy Evaluate & Treat Comment: Physician Instructions: Evaluate and Treat Discharge provider: Rocky Read MD Exam Vital Signs (past 8 hours): Oxygen Delivery Method Nasal Cannula Oxygen Flow Rate 0 Objective Labs 02/04/25 11:20 02/04/25 11:20 Labs: Laboratory Results - last 24 hr 02/04/25 11:20 WBC 5.7 RBC 4.20 Hgb 12.5 Hct 36.9 MCV 88.1 MCH 29.8 MCHC 33.9 RDW 14.7 Plt Count 195 Neut % (Auto) 76.4 H Lymph % (Auto) 10.0 L Clarke % (Auto) 10.5 Eos % (Auto) 2.7 Baso % (Auto) 0.4 Neut # (Auto) 4400 Lymph # (Auto) 600 L Clarke # (Auto) 600 Eos # (Auto) 200 Baso # (Auto) 0 Sodium 134 L Potassium 4.0 Chloride 102 Carbon Dioxide 21 L BUN 29 H Creatinine 1.45 H Estimated GFR 37 L BUN/Creatinine Ratio 20.0 Glucose 118 H Calcium 8.8 Total Bilirubin 0.6 AST 31 ALT 20 Alkaline Phosphatase 86 Total Protein 7.0 Albumin 3.9 Globulin 3.1 [facility]3 [facility] History HTN (hypertension) Transient cerebral ischemia Parkinson's disease Surgical History S/P deep brain stimulator placement Social History household members: caregiver housing: assisted living facility alcohol intake: never Discharge Plan Discharge Plan Patient Disposition: SNF Transfer to: [facility] Other facility: [facility] Discharge orders & Medications Prescriptions: New acetaminophen 325 mg Tablet 650 mg PO Q6H Qty: 7 0RF docusate sodium 100 mg Capsule 100 mg PO BID Qty: 7 0RF polyethylene glycol 3350 [Gavilax] 17 gram Powder In Packet 17 g PO DAILY PRN (Reason: Constipation) Qty: 14 0RF oxycodone 5 mg Tablet 5 mg PO Q3HR PRN (Reason: Pain, Moderate (4-6)) Qty: 9 0RF Continued Gocovri 137 mg capsule,extended release 24hr 274 mg PO BEDTIME amlodipine 10 mg tablet 10 mg PO DAILY carbidopa-levodopa 25-100 mg tablet 0.5 tab PO 5XD carvedilol 12.5 mg tablet 12.5 mg PO BID Follow up/Referrals: Dante Francois MD [Primary Care Provider, General Surgery] Diet/Activity/Treatments Diet: Diet as Tolerated and Regular Food texture: Regular [facility] Reason for rehabilitation: Post-operative therapy Rehab type: Physical therapy and Occupational therapy Visit Report/Discharge Packet Stand Alone Forms: Patient Portal/API Discharge Data Primary Care Provider: Dante Francois Quality VTE Deep Vein Thrombosis/Pulmonary Embolism Present on Admission: No
[2025-02-05 09:16] VITALS: BP 139/79
[2025-02-05] MEDS: DOCUSATE 100 MG CAPSULE PO (09:17)
[2025-02-05] MEDS: ACETAMINOPHEN 325 MG TABLET 650 MG PO (09:20)
--- NOTE | 2025-02-05 11:34 | CM.DPC ---
[facility] can accept patient today. 3PM pickup. Patient and Patient's drt, Dorina, aware.
--- NOTE | 2025-02-05 12:40 | PC.NURSE ---
Addendum entered by Rere Cerna RN 02/05/25 12:55: Called report to Walter WALTERS at [facility] and answered all questions. Pt will be given her Sinemet dose prior to transfer. Notified Walter WALTERS that Pt's home med was in the packet. Original Note: Pt's home med that was brought in by her daughter were returned from pharmacy and placed in Pt packet to go to [facility]. Pt is aware and approved of the meds being placed in the packet.
--- NOTE | 2025-02-05 14:10 | PT.IPTN ---
Current Diagnoses Parkinson's disease without dyskinesia, with fluctuations (02/01/25) Essential (primary) hypertension (02/01/25) Left bundle-branch block, unspecified (02/01/25) Fracture of unspecified part of neck of right femur, initial encounter for closed fracture (02/01/25) Surgery Performed Operation Date: 02/01/25 17:15 Actual Procedures p ORIF Hip/Cannulated Screws x3(Right) - Jg Barnes MD Physical Therapy Treatment Note M2 PT-IP Current Condition Start: 02/02/25 18:36 Freq: NEEDED Status: Discharge Protocol: Document 02/04/25 09:54 SP (Rec: 02/04/25 12:31 SP Laptop) Physical Therapy Current Condition Current Condition Evaluation Date 02/02/25 Treatment Diagnosis R hip fx s/p ORIF; difficulty in walking Onset Date 02/01/25 M3 PT-IP Subjective Start: 02/02/25 18:36 Freq: NEEDED Status: Discharge Protocol: Document 02/05/25 14:10 AB (Rec: 02/05/25 15:03 AB [id number]) Subjective Physical Therapy Visit Type Type Treatment Note Visit Start Time 14:10 Visit Stop Time 14:35 Number of HOSPICE ADMITTING CLERK Visits 0 Physical Therapy Visit Comments Patient Comments agreeable to do PT Therapy Pain Assessment Location Right hip Scale Used mediocre pain per pt Pain Management Distraction,Modification of Treatment,Re-positioning, Techniques Timing of Activity with Medications M4 PT-IP Mobility and Gait Start: 02/02/25 18:36 Freq: NEEDED Status: Discharge Protocol: Document 02/05/25 14:10 AB (Rec: 02/05/25 15:03 AB [id number]) PT-Bed Mobility Assessment Supine to Sit Supine to Sit Maximum Assistance,1 Person Assistance,Head of Bed Elevated Scooting Scooting to Edge of Maximum Assistance Bed PT-Transfer Assessment Sit to and From Stand Sit to and from Maximum Assistance,1 Person Assistance,Use of Upper Stand Extremities Equipment Transfer Assistive Gait Belt,Large Based Quad Cane Device Orthotic/Prosthetic No Devices or Brace: Transfers Transfer Destination Chair,Wheelchair Transfer Technique ambulated Transfer Ability Level of Assist Maximum Assistance,1 Person Assistance,Use of Upper Extremities Comments Mobility Comments pt in bed and agreeable to do PT. supine to sit max A with HOB elevated. pt used bed rail to assist. able to sit on EOB mod A with initial increase retrolean and cues to correct. max A for scooting to EOB. sit to stand max A and max cues. increase retrolean and cues to use FWW for support and to correct posterior lean. pt ambulated ~ 20 ft using FWW max A and max cues. continues to have R knee buckling needing max A for stability and max cues for quads activation. pt wanting to put her clothes on. NAC in room to assist. assisted pt with donning pants. sit to stand from the chair max A and max cues and initial max A and then mod A after repositioning and cued for steading. used FWW for support while assisted with pants management. pt sat on chair and rested. agreed to ambulate to the w /c sit to stand from the chair max A and ambulated to the w/c using fWW max A and max cues. sat on the chair . NAC assisted pt with UB dressing. positioned pt on the w/c. Left pt with NAC Gait Assessment Gait Gait Assistance Maximum Assistance,1 Person Assist Required: Distance (Feet) 20 Able to Maintain Yes Weight Bearing Status During Gait Assistive Devices Assistive Device Gait Belt,Front Wheeled Walker Orthotic/Prosthetic No Devices or Brace: Gait Deviations General Gait Pattern Antalgic,Decreased Stride Length,Decreased Feet Clearance,Step-to Gait Factors Limiting Gait Function Factors Limiting Decreased Activity Tolerance,Decreased Strength, Gait Function Difficulty Following Directions,Limited Range of Motion ,Pain,Poor Balance,Poor Safety Awareness M5 PT-IP Objective Assessments Start: 02/02/25 18:36 Freq: NEEDED Status: Discharge Protocol: Document 02/03/25 09:25 [facility] (Rec: 02/03/25 13:48 [facility] [id number]) Orientation Orientation/Cognition Level of Alertness Alert Orientation Name,Place,Situation Safety Awareness Decreased Safety Awareness Memory Description Short Term Impaired Comments slow and soft unclear speech related to Parkinson's Strength Comments Strength Comments requires min assist for full SAQ and LAQ M6 PT-IP Treatment Start: 02/02/25 18:36 Freq: NEEDED Status: Discharge Protocol: Document 02/05/25 14:10 AB (Rec: 02/05/25 15:03 AB [id number]) Physical Therapy Treatment Education Education Provided Safety M7 PT-IP Assessment and Plan Start: 02/02/25 18:36 Freq: NEEDED Status: Discharge Protocol: Document 02/05/25 14:10 AB (Rec: 02/05/25 15:03 AB [id number]) PT Summary Assessment and Plan Potential Rehabilitation Fair Potential Summary Impairments Pain,ROM,Strength,Balance,Coordination,Sensation,Tone, Cognition,Bed Mobility,Transfers,Gait,Activity Tolerance Progress Towards Slow Progress due to Pain,Slow Progress due to Medical Goals Issues,Slow Progress due to Activity Tolerance Assessment Summary pt requiring max A for mobilities using FWW and max cues for techniques and safety. pt with dx PD contributing to current level of mobility. pt plans to go to SNF rehab to improve overall strength and mobility level. Goals Bed Mobility Goal Minimal Assistance Transfer Goal Minimal Assistance,Front Wheeled Walker Gait Goal Minimal Assistance,Front Wheel Walker Gait Distance 50 Other Goals improve bed mobility, transfers, ambulation using FWW 100 ft SBA Days to Meet Goals 10 Frequency of Treatment Frequency Of Once a Day Treatment Treatment Plan Physical Therapy Bed Mobility Training,Transfer Training,Gait Training, Treatment Plan Therapeutic Exercise,Balance Retraining,Post Op Education,Discharge Planning,Hot or Cold Pack, Neuromuscular Re-ed,Coordination Retraining,Manual Therapy Weight Bearing Status Weight Bearing Weight Bear as Tolerated Status Allowed Weight RLE WBAT Bearing Amount ( enter % or #) (%) Recommendations To Nursing Amount of Assist 1 Person Assist Needed Discharge Recommendations PT Discharge SNF Rehab Recommendations Equipment Needed for FWW Home Before Discharge Transportation Needs Wheelchair/Cabulance at Discharge - PT assist 1
--- NOTE | 2025-02-05 14:36 | PC.NURSE ---
Pt out via her personal w/c with all her belongings by [employer] personnel>
== END 2025-02-05 14:37 | DRG 482 ==
LOC: ED 22:27 → AC 02-01 00:32 → ICU 02-01 02:31 → AC 02-01 22:13
PROVIDERS: Internal Medicine; Orthopaedic Surgery Adult Reconstructive Orthopaedic Surgery; Admitting Provider Internal Medicine; Emergency Provider Emergency Medicine; PCP Student in an Organized Health Care Education/Training Program; Referring Provider Emergency Medicine; Visit Provider Internal Medicine
PROC: 0QH634Z Insertion of Internal Fixation Device into Right Upper Femur, Percutaneous Approach (ICD-10-PCS; principal; 2025-02-01 17:15)
DX: S72.011A Unspecified intracapsular fracture of right femur, initial encounter for closed fracture (principal); G20.A2 Parkinson's disease without dyskinesia, with fluctuations; I10 Essential (primary) hypertension; W18.30XA Fall on same level, unspecified, initial encounter; Z91.81 History of falling; Z86.73 Personal history of transient ischemic attack (TIA), and cerebral infarction without residual deficits; Z96.82 Presence of neurostimulator
CPT/HCPCS: 36415; 72192; 73502; 76000; 80048; 80053; 82962; 85025; 85027; 87797; 96374; 96375; 97110; 97116; 97162; 97166; 97530; 99284; J0687; J0689; J1100; J1171; J1885; J2272; J2405; J2704; J3010; J7050; J7120